=== PATIENT | female | born 1955 | race Caucasian/White ===

== ENCOUNTER 2025-05-25 08:03 | Outpatient (AMB) | payer MEDICARE, SELFPAY ==
--- NOTE | 2025-05-25 08:03 | MHC.OFFVIS ---
Vital Signs 05/25/25 08:08 Height 5 ft 1 in Weight 119 lb BMI 22.5 BP 132/78 Blood Pressure Location Rt brachial Position Sitting Pulse 56 Pulse Source Pulse Oximeter Pulse Oximetry (%) 99 Oxygen Delivery Method Room Air Intake Visit Reasons: migraine Allergies No Known Allergies Allergy (Verified 05/25/25 08:10) HPI Comments Details: Shonda is a 69-year-old female patient with a past medical history of vertigo, chronic migraine, fibromyalgia, cervicalgia, and dystonia who was previously seeing me at [facility] for management of her chronic migraines. She was receiving Botox every 3 months as well as occipital nerve blocks during the months that she was not receiving Botox therapy. She last had her Botox therapy on 04/21/2025. She presents to the clinic today here at [facility], to reestablish care with me at the [facility]. She tells me today that headaches have been occurring on a near daily basis. Have been steadily increasing over the course of the last several months. She feels that this is due to some new arising medical complications. Headaches are occurring near daily and can last several hours at high severity. She has been resting and taking Tylenol as needed a few times per week when headaches become more severe. Headaches can be occipital and bitemporal and felt as a pressure sensation. She does have light and sound sensitivity and some intermittent nausea when her headaches become severe. In general, Botox has been helpful historically. Headaches have reduced approximately 50% in severity since starting on Botox in general. She is currently seeing a provider in [place] for a cyst/lesion on her lung. She will be soon starting CellCept for this. They feel that at this time biopsy would be too risky. Past medication trials: Metoprolol- Currently taking for cardiovascular purposes but does not help with headaches Amitriptyline- No benefit Topiramate- No benefit Has tried several triptans in the past. She can recall trials of sumatriptan, rizatriptan, and naratriptan and these did not provide any benefit. Prior workup: Her recent workup has included an MRI of the brain with and without contrast performed 08/30/2024: Findings demonstrated no acute/subacute infarct, mass, hemorrhage, or other acute intracranial abnormality. There was some mild scattered T2 FLAIR hyperintense foci in the white matter, nonspecific but most likely reflecting chronic small-vessel disease. [facility] Medical History (Updated 05/25/25 @ 08:15 by Concha Lazcano CNP) Multinodular non-toxic goiter Migraine Surgical History (Updated 05/25/25 @ 08:11 by Najma Jimenez CMA) Hx of appendectomy H/O thyroidectomy H/O abdominal hysterectomy Family History (Updated 05/25/25 @ 08:13 by Najma Jimenez CMA) Mother Hypertension Father Leukemia Brother Colon cancer Social History Household Members: Spouse Housing: House Alcohol intake: never Patient Tobacco Use Status: Former Tobacco user service: No Current occupational status: retired Cognitive needs: No Hearing needs: No Vision needs: Yes Review of Systems Const All systems reviewed & are unremarkable except as noted in HPI and below GI Reports diarrhea and Reports nausea Physical Exam Vital Signs: Last Vital Signs Pulse 56 05/25/25 08:08 BP 132/78 05/25/25 08:08 Pulse Ox 99 05/25/25 08:08 Oxygen Delivery Method Room Air 05/25/25 08:08 BMI result Body Mass Index 22.5 Const General: cooperative, healthy appearing, comfortable and no acute distress Nutritional Appearance: well nourished Orientation/consciousness: patient oriented x3 Limitations: no limitations HEENT Other: Bilateral occipital notch tenderness Head: Yes normal to inspection and Yes normocephalic Eyes General: appearance normal, both eyes and all related structures Visual Antony: normal visual antony by confrontation Alignment and Position: alignment normal Periorbital: periorbital findings normal Eyelids: Yes eyelids normal Conjunctivae: conjunctivae normal Sclerae: sclerae normal Back/Spine/Pelvis Other: Bilateral L>R trapezius trigger points Neuro General: patient oriented x3 Cranial nerves: Yes CN's II-XII intact bilaterally and Yes Facial sensation intact/muscles of mastication intact Cognition (Neuro): normal cognition Gait exam (Neuro): Normal gait present Motor exam (neuro): no tremor noted Romberg Test: Negative Psych Appearance: grossly normal Mental Status: mental status grossly normal Speech and movement: Normal speech and movement present and Clear speech present Affect: normal affect Attitude: cooperative Thought process: Normal thought process present Thought content: Normal thought content present Insight: Good insight present (Psych) Judgement: Good judgement present (Psych) Office Procedures Nerve Block Details: Bilateral Greater Occipital Nerve block procedure: Laterally: Bilateral Indications: Occipital neuralgia Current allergies and current list of medications were reviewed prior to procedure, verbal consent was obtained, procedure was explained in detail to the patient prior to starting. Time-out was performed prior to procedure. Following universal hygiene protocols, patient's left occipital area was located by drawing a line between the external occipital protuberance and the mastoid process. The greater occipital nerve was located approximately 2/3 along this online communications manager to the occiput, and corresponded with the point of maximum tenderness. Alcohol was applied topically to the skin. A 27 gauge needle (aspirating during insertion) was inserted at a 45 degree angle until just above the periosteum. The providers selected agent (s)/medications (as documented in this note) were injected on the left side (directing needle to center, left and right of painful focus any fanning technique). Pressure with gauze pad was held briefly upon the site of puncture to minimize bleeding and to further spread anesthetic subcutaneously. The procedure was repeated on the right side. The patient was monitored for 15 minutes after the procedure and no complications were observed. Post procedure care was reviewed with the patient including application of ice intermittently to the injection sites over the course of the day to reduce inflammation. CPT: 46465-Bpggztv Occipital Procedure code (CPT) selection complete Therapeutic Injection Therapeutic Injection Details: Trigger point injection procedure: Laterally:Bilateral Indications: Chronic headaches, myofascial pain Following universal hygiene protocol, after explaining the risks and benefits as well as hazards of the procedure to the patient, consent was signed and placed in the chart. Time-out prior to starting the procedure was performed. The areas over the bilateral trapezius were cleansed with alcohol. 2 Sites in each trapezius muscle injected with a 27 gauge 1.5 in needle with myofascial spasm. Patient tolerated the procedure well, localized bleeding was controlled. Patient monitored in the clinic for 15 minutes for complications. Patient was discharged home with instructions to apply ice to the back of their head as needed. 80436-[id number] Point Injection 1 or 2 sites All charges added?: Procedure code (CPT) selection complete Office Meds lidocaine (PF) 10 mg/mL (1 %) injection solution Performing Provider: Concha Lazcano CNP Performing Location: [facility] Administered by: Concha Lazcano CNP on 05/25/25 08:45 Dose Route Admin Location Dispensed Lot Number Expiration Date [facility] Director Of Land [employer]quisition 2 mL peripheral nerve block 2 mL [id number] 06/06/27 88186-726-26 [employer] Total Dispensed Waste 2 mL 0 % bupivacaine (PF) 0.25 % (2.5 mg/mL) injection solution Performing Provider: Concha Lazcano CNP Performing Location: [facility] Administered by: Concha Lazcano CNP on 05/25/25 08:45 Dose Route Admin Location Dispensed Lot Number Expiration Date [facility] Director Of [employer] 4 mL Infiltration 10 mL [id number] [employer] Total Dispensed Waste 10 mL 60 % bupivacaine (PF) 0.25 % (2.5 mg/mL) injection solution Performing Provider: Concha Lazcano CNP Performing Location: [facility] Administered by: Concha Lazcano CNP on 05/25/25 08:45 Dose Route Admin Location Dispensed Lot Number Expiration Date [facility] Director Of [employer] 3 mL Infiltration 10 mL [id number] [employer] Total Dispensed Waste 10 mL 70 % Assessment & Plan Assessment & Plan (1) Chronic migraine without aura without status migrainosus, not intractable: Code(s): G43.709 - Chronic migraine without aura, not intractable, without status migrainosus Category: Medical (2) Trigger point of left shoulder region: Code(s): M25.512 - Pain in left shoulder Category: Medical (3) Occipital neuralgia: Code(s): M54.81 - Occipital neuralgia Category: Medical Plan Shonda is a 69-year-old female patient with a past medical history of vertigo, chronic migraine, fibromyalgia, cervicalgia, and dystonia who was previously seeing me at [facility] for management of her chronic migraines. Headaches have been so far best managed on Botox therapy in conjunction with nerve block and trigger point injections. She however still having some difficulty with frequent headaches and she feels that this may be related to some ongoing medical conditions. This has been causing her some stress. We will continue this regimen as in the past stopping this regimen has caused an increase in headaches. She also did have a near 50% reduction in the severity of her headaches with Botox therapy. I do however think that we should consider adding on an anti CGRP injectable in the future however provided that she is going to be going on some new medications for health concerns by other specialists, we will hold on this for now. I will however send for a trial of Ubrelvy 100 mg as needed for migraine abortive therapy. -Continue Botox therapy every 3 months -Continue occipital nerve blocks and trigger point injections on the months that she is not receiving Botox therapy -Trial of Ubrelvy 100mg as needed Orders: Orders AMB Nerve Block Today G43.709 - Chronic migraine without aura, not intractable, without status migrainosus, M54.81 - Occipital neuralgia AMB Trigger Point Injection Today M25.512 - Pain in left shoulder Coding Level of Care Code New Pt Level 4 (88150) Diagnoses Chronic migraine without aura without status migrainosus, not intractable G43.709 Trigger point of left shoulder region M25.512 Occipital neuralgia M54.81 CPT Codes Nerve Block - CPT: 74964-Acqyvhv Occipital ([id number]) Therapeutic Injection - Ther Injection 1: [id number]-[id number] Point Injection 1 or 2 sites ([id number])
[2025-05-25 08:08] VITALS: BP 132/78; PULSE 56; O2SAT 99; BMI 22.5
--- OUTSIDE RECORDS SUMMARY | 2025-05-25 08:10 | XMS_ITS | Clinical Summary ---
Author Organization [address] [place] [address] [place] [phone] Phone Care Team Providers Care Schedule Checker Name Role Phone Tiffany Batista MD Primary Care Provider [phone] Allergies No known active allergies Medications albuterol HFA (PROAIR HFA ; PROVENTIL HFA ; VENTOLIN HFA) 90 mcg/actuation inhaler Inhale 2 Puffs into the lungs every 6 hours as needed for Cough or Wheezing for up to 30 days. 08/25/2022 Active atorvastatin (LIPITOR) 80 mg tablet Take 1 tablet (80 mg total) by mouth 1 (one) time each day. Active CALCIUM CITRATE ORAL Take by mouth. Active CYANOCOBALAMIN, VITAMIN B-12, ORAL Take 1 tablet by mouth daily. Active coenzyme Q-10 100 mg capsule Take 1 capsule (100 mg total) by mouth 2 (two) times a day. Active estradioL (ESTRACE) 1 mg tablet See Admin Instructions. Take 1 Tablet by oral route 2 times every week Active flecainide (TAMBOCOR) 100 mg tablet Take 1 tablet (100 mg total) by mouth 2 (two) times a day. 03/08/2024 Active levothyroxine (SYNTHROID, LEVOTHROID) 100 mcg tablet Take 100 mcg by mouth daily. 06/25/2021 Active MAGNESIUM ORAL Take 1 tablet by mouth daily. Active metoprolol succinate (TOPROL-XL) 25 mg 24 hr tablet Take 0.5 Tablets by mouth daily. Active naltrexone (Lotrexone) 1.5 mg capsule Take by mouth See Admin Instructions. Take 1.5 mg for 2 weeks, 3 mg for 2 weeks, then 4.5 mg daily. Active omeprazole (PriLOSEC) [address] capsule Take 1 Cap by mouth daily. Active pyRIDostigmine (MESTINON) 60 mg tablet Take 1 tablet (60 mg total) by mouth 3 (three) times a day. Active topiramate (TOPAMAX) 50 mg tablet Take 1 Tab by mouth 2 times daily. Active traZODone (DESYREL) 50 mg tablet Take 1 Tab by mouth at bedtime as needed. Active CHOLECALCIFEROL , VITAMIN D3, ORAL Take by mouth daily. 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 We did discuss that this is likely due to her frequent PVCs. When I checked her blood pressure initially her systolic was 80. She was having frequent PVCs at the time. I rechecked it and it was 140. She will continue on her current medications for her blood pressure at this time. Palpitations 10/16/2020 PVC (premature ventricular contraction) 10/16/19 Overview (06/06/2024): Last Assessment & Plan: We did discuss her symptoms of fatigue and shortness of breath. We did discuss that this is likely related to her frequent PVCs. She is having more than 26% of these in a day. Unfortunately they did not improve with her beta-trell or calcium channel trell. Based on her symptomatology from these I think we should try her on an antiarrhythmic. She did have an echo and a stress test done which were normal. Ideally I would try her on flecainide 50 mg twice a day. However, she did have some intermittent second-degree heart block noted at night on her Holter monitor. This is likely still safe to try her on a 1C antiarrhythmic however I will discuss this with our EP colleagues to see with her level of concern is. We may end up sending her for an EP consult for this. I will let her know what the plan is. If things worsen she will let us know. Encounters Date Type Department Care Team Description 05/23/2025 Telephone [facility] [address] [facility] [address] [place] [address] Dayne Barreto MD from Last 3 Months Surgical History Surgery Date Site/Laterality Comments APPENDECTOMY COLONOSCOPY HYSTERECTOMY THYROIDECTOMY ESOPHAGOGASTRODUODENOSCOPY Medical History Medical History Date Comments Fibromyalgia GERD (gastroesophageal reflux disease) Hepatitis C Hypothyroidism Irritable bowel syndrome Ovarian cancer ([facility] V24, [facility] V28) Social History Tobacco Use Types Packs/Day Years Used Date Smoking Tobacco: Former Cigarettes Smokeless Tobacco: Never Tobacco Cessation:Counseling Given: Not Answered Alcohol Use Standard Drinks/Week Comments Not Currently 0 (1 standard drink = 0.6 oz pur e alcohol) Comments Unknown Sex and Gender Information Value Date Recorded Sex Assigned at Not on file Legal Sex Female 5:27 PM EST Gender Identity Not on file Sexual Orientation Not on file Obstetrics History Last Filed Vital Signs Vital Sign Reading Time Taken Comments Blood Pressure 130/60 07/13/2024 1:22 PM EST Pulse 70 07/13/2024 1:22 PM EST Temperature - - Respiratory Rate - - Oxygen Saturation 99% 07/13/2024 1:22 PM EST Inhaled Oxygen Concentration - - Weight 55.3 kg (122 lb) 07/13/2024 1:22 PM EST Height 154.9 cm (5' 1 ) 01/11/2024 10:48 AM EDT Body Mass Index 23.05 01/11/2024 10:48 AM EDT Plan of Treatment Upcoming Encounters Date Type Department Care Team (Late st Contact Info) Description 05/30/2025 3:15 PM EDT Office Visit [facility] [address] [facility] [address] [place] [phone] Dayne Barreto MD [address] [place] [address] [place] [address] Health Maintenance Due Date Last Done Comments Breast Cancer Screening 1955 DTaP,Tdap,and Td Vaccines (1 - Tdap) 1976 Zoster Vaccines (1 of 2) 1976 Pneumococcal Vaccine: 50+ Years (1 of 1 - PCV) 11/06/2007 COVID-19 Vaccine (3 - Pfizer risk series) 02/02/2021 01/05/2021, 12/15/2020 Cholesterol Screening (Lipid Panel) 08/16/2022 Colorectal Cancer Screening: Colonoscopy 08/16/2022 Hepatitis C Screening 08/16/2022 Medicare Annual Wellness Visit 08/16/2022 Osteoporosis Screening (Bone Density Screening) 08/16/2022 Social Influencers of Health Screening 08/16/2022 Hypertension/CHF/CAD Annual BMP Blood Test 08/17/2022 Falls Risk Assessment 2022 Depression Screening 09/07/2024 Influenza Vaccine (#1) 2025 RSV Immunization Adult Patients (1 - 1-dose 75+ series) 2032 HIB Vaccines Aged Out No longer eligi ble based on patient's age to complete this topic HPV Vaccines Aged Out No longer eligi ble based on patient's age to complete this topic Hepatitis A Vaccines Aged Out No long er eligible based on patient's age to complete this topic Hepatitis B Vaccines Aged Out No long er eligible based on patient's age to complete this topic IPV Vaccines Aged Out No longer eligi ble based on patient's age to complete this topic MMR Vaccines Aged Out No longer eligi ble based on patient's age to complete this topic Meningococcal ACWY Vaccine Aged Out N o longer eligible based on patient's age to complete this topic Meningococcal B Vaccine Aged Out No l onger eligible based on patient's age to complete this topic RSV Immunization Patients Under 20 months Aged Out No longer eligible b ased on patient's age to complete this topic Varicella Vaccines Aged Out No longer eligible based on patient's age to complete this topic Insurance MEDICARE AARP Care Teams Schedule Checker Relationship Specialty Start Date End Date Tiffany Batista MD [address] [place] [address] PCP - General 07/16/22
--- OUTSIDE RECORDS SUMMARY | 2025-05-25 08:10 | XMS_ITS | Patient Health Record ---
Author Organization [facility] [address] Address [address] [place] [address] Care Team Providers Care Choke Setter Name Role Phone ESCOBAR BATISTA Unavailable [phone] Bebe Urrutia Unavailable [phone] Allergies No Known Allergies Results Component Value Reference Range Notes Comp. Metabolic Panel ([id number] Reviewed date:12/29/2024 04:47:52 PM Interpretation: Performing Lab:[facility], [employer] [facility], Phone - [phone], Director - MDJodry Notes/Report: Glucose 77 70-99 mg/dL BUN 10 8-27 mg/dL Creatinine 0.80 0.57-1.00 mg/dL eGFR 81 >59 mL/min/1.73 BUN/Creatinine Ratio 13 12-28 Sodium 140 134-144 mmol/L Potassium 3.8 3.5-5.2 mmol/L Chloride 102 96-106 mmol/L Carbon Dioxide, Total 25 20-29 mmol/L Calcium 8.8 8.7-10.3 mg/dL Protein, Total 6.3 6.0-8.5 g/dL Albumin 4.2 3.9-4.9 g/dL Globulin, Total 2.1 1.5-4.5 g/dL Bilirubin, Total 0.6 0.0-1.2 mg/dL Alkaline Phosphatase 47 44-121 IU/L AST (SGOT) 17 0-40 IU/L ALT (SGPT) 7 0-32 IU/L Lipid Panel-[id number] Reviewed date:04/11/2025 09:41:02 AM Interpretation: Performing Lab:[facility], [address] , [place], Phone - [phone], Director - MDJodry Notes/Report: Cholesterol, Total 216 100-199 mg/dL Triglycerides 108 0-149 mg/dL HDL Cholesterol 63 >39 mg/dL VLDL Cholesterol Stanley 19 5-40 mg/dL LDL Chol Calc ([facility]) 134 0-99 mg/dL Lipid Panel-[id number] Reviewed date:12/29/2024 04:48:36 PM Interpretation: Performing [facility], [address] [place] [address], Phone - [phone], Director - PAPhilly Notes/Report: Cholesterol, Total 237 100-199 mg/dL Triglycerides 114 0-149 mg/dL HDL Cholesterol 76 >39 mg/dL VLDL Cholesterol Stanley 20 5-40 mg/dL LDL Chol Calc ([facility]) 141 0-99 mg/dL Celiac Ab tTG TIgA w/Rflx-16 [id number] Reviewed date:12/29/2024 04:47:37 PM Interpretation: Performing Lab:[facility] [place], [address] [place] [address], Phone - [phone], Director - [facility] Notes/Report: t-Transglutaminase (tTG) IgA <2 0-3 U/mL Negative 0 - 3 Weak Positive 4 - 10 Positive >10 . Tissue Transglutaminase (tTG) has been identified as the endomysial antigen. Studies have demonstr- ated that endomysial IgA antibodies have over 99% specificity for gluten sensitive enteropathy. Immunoglobulin A, Qn, Serum 155 87-352 mg/dL Vitamin D, 00-[id number] Reviewed date:12/29/2024 04:48:54 PM Interpretation: Performing [facility], [address] [place] [address], Phone - [phone], Director - PANilo Notes/Report: Vitamin D, 25-Hydroxy 20.3 30.0-100.0 ng/mL Vitamin D deficiency has been defined by the [place] [employer] and an Endocrine Society practice guideline as a level of serum 25-OH vitamin D less than 20 ng/mL (1,2). The Endocrine Society went on to further define vitamin D insufficiency as a level between 21 and 29 ng/mL (2). 1. IOM ([place] [employer]). 2010. Dietary reference intakes for calcium and D. [place]: The National Academies Press. 2. Manuel MF, Tarsha NC, Jahaira BELTRAN, et al. Evaluation, treatment, and prevention of vitamin D deficiency: an Endocrine Society clinical practice guideline. JCEM. 2010; 96(6):1911-30. CBC With Differential/Platel et-[id number] Reviewed date:12/29/2024 04:48:12 PM Interpretation: Performing Lab:[facility] [place], [address] [place] [address], Phone - [phone], Director - Gabriella Notes/Report: WBC 3.9 3.4-10.8 x10E3/uL RBC 4.09 3.77-5.28 x10E6/uL Hemoglobin 12.7 11.1-15.9 g/dL Hematocrit 38.9 34.0-46.6 % MCV 95 79-97 fL MCH 31.1 26.6-33.0 pg MCHC 32.6 31.5-35.7 g/dL RDW 12.7 11.7-15.4 % Platelets 218 150-450 x10E3/uL Neutrophils 43 Not Estab. % Lymphs 45 Not Estab. % Monocytes 8 Not Estab. % Eos 3 Not Estab. % Basos 1 Not Estab. % Neutrophils (Absolute) 1.7 1.4-7.0 x10E3/uL Lymphs (Absolute) 1.7 0.7-3.1 x10E3/uL Monocytes(Absolute) 0.3 0.1-0.9 x10E3/uL Eos (Absolute) 0.1 0.0-0.4 x10E3/uL Baso (Absolute) 0.0 0.0-0.2 x10E3/uL Immature Granulocytes 0 Not Estab. % Immature Grans (Abs) 0.0 0.0-0.1 x10E3/uL [id number] Reviewed date:12/29/2024 04:47:11 PM Interpretation: Performing Lab:[facility] [place], [address] [facility], Phone - [phone], Director - Gabriella Notes/Report: TSH 2.980 0.450-4.500 uIU/mL Magnesium-[id number] Reviewed date:12/29/2024 04:46:34 PM Interpretation: Performing Lab:[facility] [place], [address] , [place], Phone - [phone], Director - Gabriella Notes/Report: Magnesium 2.0 1.6-2.3 mg/dL Vitamin [id number] Reviewed date:12/29/2024 04:46:44 PM Interpretation: Performing Lab:[facility], [address] , [place], Phone - [phone], Director - Gabriella Notes/Report: Vitamin B12 707 257-3565 pg/mL Vitamin D, 41-[id number] Reviewed date:04/11/2025 09:40:42 AM Interpretation: Performing Lab:[facility], [address] , [place], Phone - [phone], Director - Gabriella Notes/Report: Vitamin D, 25-Hydroxy 28.2 30.0-100.0 ng/mL Vitamin D deficiency has been defined by the [place] [employer] and an Endocrine Society practice guideline as a level of serum 25-OH vitamin D less than 20 ng/mL (1,2). The Endocrine Society went on to further define vitamin D insufficiency as a level between 21 and 29 ng/mL (2). 1. IOM ([place] [employer]). 2010. Dietary reference intakes for calcium and D. [place]: The National Academies Press. 2. Manuel MF, Tarsha JAIN, Jahaira BELTRAN, et al. Evaluation, treatment, and prevention of vitamin D deficiency: an Endocrine Society clinical practice guideline. JCEM. 2010; 96(7):1911-30. Reason For Referral Reason [facility]; change in bowel habit/abdominal pain Diagnosis 1 Bowel habit changes (R19.4) Diagnosis 2 Abdominal pain of un known etiology (R10.9) Referral Organization [facility] [address] Referring Provider First Name Bebe Referring Provider [facility] Referring Provider Speciality Internal M edicine Referred Provider Specialty Gastroentero logy General Notes (f) [phone] Clinical Notes Dea Bains 11:24:40 AM > referral faxed with attachments Referral Priority Routine Medications Medication SIG (Take, Route, Frequency, Duration) Notes Start Date End Date Status dilTIAZem HCl ER 120 MG 1 capsule Orally Twice a day Active Citracal + D Active Mestinon 60 MG 0.5 tablet Orally every 8 hours Active Ezetimibe 10 MG TAKE 1 TABLET BY MOUTH EVERY DAY; Duration: 90 Active Metoprolol Succinate ER 25 MG 1 tablet Orally Once a day 1/2 tablet (12.5mg) Active Nataliia 0.1 MG/24HR APPLY 1 PATCH TOPICALLY TWO TIMES A WEEK. REMOVE OLD PATCH BEFORE APPLYING NEW ONE.; Duration: 28 days Active B12 Active B Complex Active Atorvastatin Calcium 80 MG TAKE 1 TABLET BY MOUTH EVERY DAY; Duration: 90 Active Omeprazole 40 MG TAKE 1 CAPSULE BY MOUTH EVERY DAY; Duration: 90 Active Ergocalciferol 50 MCG (2000 UT) 2 capsule Orally once a day; Duration: 30 days Active Naltrexone - as directed Activ e Levothyroxine Sodium 100 MCG TAKE 1 TABLET BY MOUTH EVERY DAY; Duration: 90 Active Flecainide Acetate 100 MG as directed Orally Active Immunizations Vaccine Route Administration Date Status Comme nts influenza IM Intramuscular 09/10/2022 Administered influenza IM Intramuscular 06/10/2023 Administered Prevnar 20 IM Intramuscular 09/29/2023 Administered Social History Tobacco Use: Social History Observation Description Date Details (start date - stop date) Former Smoker NA - NA Tobacco Use/Smoking Question Answer Notes Are you a former smoker Section Notes: Retired 2 children Retired 2 children Retired 2 children Retired 2 children Retired 2 children Retired 2 children Retired 2 children Retired 2 children Retired 2 children Retired 2 children Retired 2 children Retired 2 children Retired 2 children Retired 2 children Problems Problem Type SNOMED Code ICD Code Onset Dates Problem Status W/U Status Risk Notes Problem Respiratory disorders in diseases classified elsewhere (J99) Active confirmed Problem Adult health examination (467311417) Encounter for general adult medical examination without abnormal findings (Z00.00) Active confirmed Problem Hypothyroidism (71888554) Hypothyroidism, unspecified type (E03.9) Active confirmed Problem Vitamin D deficiency (96151451) Vitamin D deficiency (E55.9) Active confirmed Problem Gastroesophageal reflux disease without esophagitis (781506507) Gastroesophageal reflux disease without esophagitis (K21.9) Active confirmed Problem Diabetes mellitus screening (968665191) Screening for diabetes mellitus (Z13.1) Active confirmed Problem Vaginal bleeding (239833957) Vaginal bleeding (N93.9) Active confirmed Problem Abdominal pain (54869671) Abdominal pain of unknown etiology (R10.9) Active confirmed Problem Vitamin B>12< deficiency anaemia (93475507) Anemia due to vitamin B12 deficiency, unspecified B12 deficiency type (D51.9) Active confirmed Problem Migraine aura withou t headache (126795776) Migraine aura without headache (G43.109) Active confirmed Problem Mixed hyperlipidemia (981417329) Hyperlipidemia, mixed (E78.2) Active confirmed Problem Refractory migraine (391999745) Intractable migraine with status migrainosus, unspecified migraine type (G43.911) Active confirmed Problem Altered bowel habits (93722018) Bowel habit changes (R19.4) Active confirmed Problem Dysautonomia (06601395) Dysautonomia (G90.1) Active confirmed Problem Obstructive sleep apnea syndrome (67396670) AYSE on CPAP (G47.33) Active confirmed Problem Cystic-bullous disea se of the lung (0746253) 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) Active confirmed Problem Menopausal symptom (04840117) Menopausal symptoms (N95.1) Active confirmed Problem Hypothyroid (61786545) Hypothyroid (E03.9) Activ e confirmed Problem Elevated fasting lip id profile (791878838247) Elevated lipids (E78.5) Active confirmed Problem Endocrine/metabolic screening (706153424) Screening for endocrine disorder (Z13.29) Active confirmed Problem Age-related cataract (28929912) Age-related cataract of both eyes, unspecified age-related cataract type (H25.9) Active confirmed Problem Constipation (85956972) Constipation, unspecified constipation type (K59.00) Active confirmed Problem Diabetes mellitus screening (819590860) Diabetes mellitus screening (Z13.1) Active confirmed Problem Adult health examination (880964099) Adult general medical exam (Z00.00) Active confirmed Problem 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 Problem Vitamin D deficiency (52180320) Vitamin D deficiency, unspecified (E55.9) Active confirmed Problem Iron deficiency anem ia (94548502) Iron deficiency anemia, unspecified (D50.9) Active confirmed Vital Signs Heart Rate 53 /min 04/05/2025 Oximetry 99 % 04/05/2025 Blood pressure diastolic 68 mm Hg 04/05/2025 Height 61 in 04/05/2025 Blood pressure systolic 118 mm Hg 04/05/2025 Weight 118.2 lbs 04/05/2025 BMI 22.33 kg/m2 04/05/2025 Encounters Encounter Location Date Provider Diagnosis [facility] [address] [address] 10/06/2024 Bebe Tonycek Acute bronchitis, unspecified organism J20.9 ; Dysautonomia G90.1 ; Cystic-bullous disease of lung J98.4 ; Change in bowel habits R19.4 and Acute cough R05.1 [facility] [address] 12/01/2024 Bebe Svrcek Dysautonomia G90.1 ; Hypothyroidism, unspecified type E03.9 ; Cystic-bullous disease of lung J98.4 and Change in bowel habits R19.4 [facility] [address] 01/04/2025 Bebe Svrcek Dysautonomia G90.1 ; Hypothyroidism, unspecified type E03.9 ; Cystic-bullous disease of lung J98.4 ; Change in bowel habits R19.4 ; Vitamin D deficiency E55.9 and Menopausal symptoms N95.1 [facility] [address] 04/05/2025 Bebe Svrcek Dysautonomia G90.1 ; Cystic-bullous disease of lung J98.4 ; Change in bowel habits R19.4 ; Vitamin D deficiency E55.9 and Encounter for examination of blood pressure without abnormal findings Z01.30 [facility] [address] 10/06/2024 ESCOBAR BATISTA [facility] [address] 01/04/2025 ESCOBAR BATISTA Elevated lipids E78. 5 and Vitamin D deficiency E55.9 [facility] [address] 04/05/2025 Bebe Svrcek Assessments Encounter Date Diagnosis (ICD Code) Assessment Notes Treatment Notes Treatment Clinical Notes Section Notes 10/06/2024 Acute bronchitis, unspecified organism (ICD-10 - J20.9) #Acute bronchitis. Coarse breath sounds on exam with persistent and worsening symptoms. Given complex medical history will treat with antibiotics. Start doxycycline. Reviewed risk benefits adverse effects of medication and proper use. Unable to use azithromycin due to interaction with flecainide. RSV COVID and flu swab done in the office and negative. Push fluids and rest follow-up if no improvement in 1 week sooner with any new or worsening symptoms. #Dysautonomia. She did have a biopsy done in [place] this past week and is awaiting results which will reportedly take 4 weeks. She will follow-up with me in 2 months sooner with any concerns. #Cystic bullous disease of the lung. Complicates medical care will be more aggressive with treatment. Discussed signs and symptoms to monitor for. #Abdominal pain and change in bowel movements. Did see GI in May. She continues with frequent bowel movements diarrhea and abdominal pain. She did have stool studies done by GI. She is interested in second opinion. Will refer today. Case discussed with collaborating physician Angela Batista who reviewed the assessment and plan. Chart, medications, labs, vital signs reviewed. Dictation was accomplished with the use of [employer] voice recognition software, prone to medical misidentifications and grammatical errors. This is unintentional and the practitioner does try to identify and correct these, but some could still be present. Please do not hesitate to contact practitioner for clarification. All questions answered to patients satisfaction. Patient verbalized understanding of diagnosis and treatments explained. To call sooner prior to next visit it any questions/concerns arise. 10/06/2024 Dysautonomia (ICD-10 - G90.1) #Acute bronchitis. Coarse breath sounds on exam with persistent and worsening symptoms. Given complex medical history will treat with antibiotics. Start doxycycline. Reviewed risk benefits adverse effects of medication and proper use. Unable to use azithromycin due to interaction with flecainide. RSV COVID and flu swab done in the office and negative. Push fluids and rest follow-up if no improvement in 1 week sooner with any new or worsening symptoms. #Dysautonomia. She did have a biopsy done in [place] this past week and is awaiting results which will reportedly take 4 weeks. She will follow-up with me in 2 months sooner with any concerns. #Cystic bullous disease of the lung. Complicates medical care will be more aggressive with treatment. Discussed signs and symptoms to monitor for. #Abdominal pain and change in bowel movements. Did see GI in May. She continues with frequent bowel movements diarrhea and abdominal pain. She did have stool studies done by GI. She is interested in second opinion. Will refer today. Case discussed with collaborating physician Angela Batista who reviewed the assessment and plan. Chart, medications, labs, vital signs reviewed. Dictation was accomplished with the use of [employer] voice recognition software, prone to medical misidentifications and grammatical errors. This is unintentional and the practitioner does try to identify and correct these, but some could still be present. Please do not hesitate to contact practitioner for clarification. All questions answered to patients satisfaction. Patient verbalized understanding of diagnosis and treatments explained. To call sooner prior to next visit it any questions/concerns arise. 12/01/2024 Hypothyroidism, unspecified type (ICD-10 - E03.9) #Dysautonomia. Has upcoming follow-up in [place]. She did have a biopsy and is still awaiting results. #Hypothyroidism. Due for updated labs. She does have ongoing bowel issues and has had extensive workup without clear cause. Will get further records to review and get updated labs. Follow-up pending results. #Cystic bullous disease of lung. Followed by pulmonology in [place]. Has upcoming appointment in the next month. Breathing is stable. Lungs are clear on exam. #Change in bowel habits. Ongoing issue with very frequent bowel movements up to 15 times a day. Has had colonoscopy and seen GI without any improvement. Currently on Imodium and omeprazole as well as FODMAP diet with persistent symptoms. Interested in second opinion in [place]. Will request GI records as I am unable to find them in the system at time of visit. Follow-up in 1 month sooner with any concerns. Case discussed with collaborating physician Angela Batista who reviewed the assessment and plan. Chart, medications, labs, vital signs reviewed. Dictation was accomplished with the use of [employer] voice recognition software, prone to medical misidentifications and grammatical errors. This is unintentional and the practitioner does try to identify and correct these, but some could still be present. Please do not hesitate to contact practitioner for clarification. All questions answered to patients satisfaction. Patient verbalized understanding of diagnosis and treatments explained. To call sooner prior to next visit it any questions/concerns arise. 12/01/2024 Dysautonomia (ICD-10 - G90.1) #Dysautonomia. Has upcoming follow-up in [place]. She did have a biopsy and is still awaiting results. #Hypothyroidism. Due for updated labs. She does have ongoing bowel issues and has had extensive workup without clear cause. Will get further records to review and get updated labs. Follow-up pending results. #Cystic bullous disease of lung. Followed by pulmonology in [place]. Has upcoming appointment in the next month. Breathing is stable. Lungs are clear on exam. #Change in bowel habits. Ongoing issue with very frequent bowel movements up to 15 times a day. Has had colonoscopy and seen GI without any improvement. Currently on Imodium and omeprazole as well as FODMAP diet with persistent symptoms. Interested in second opinion in [place]. Will request GI records as I am unable to find them in the system at time of visit. Follow-up in 1 month sooner with any concerns. Case discussed with collaborating physician Angela Batista who reviewed the assessment and plan. Chart, medications, labs, vital signs reviewed. Dictation was accomplished with the use of [employer] voice recognition software, prone to medical misidentifications and grammatical errors. This is unintentional and the practitioner does try to identify and correct these, but some could still be present. Please do not hesitate to contact practitioner for clarification. All questions answered to patients satisfaction. Patient verbalized understanding of diagnosis and treatments explained. To call sooner prior to next visit it any questions/concerns arise. 01/04/2025 Hypothyroidism, unspecified type (ICD-10 - E03.9) #Dysautonomia. Has upcoming follow-up in [place]. She did have a biopsy and is still awaiting results. Appt January 16. #Hypothyroidism. TSH in range. Still struggling with significant bowel issues- frequent BMs 3-15 a day. #Cystic bullous disease of lung. Followed by pulmonology in [place]. Has upcoming appointment in the next month. Breathing is stable. Lungs are clear on exam. #Change in bowel habits. Ongoing issue with very frequent bowel movements up to 15 times a day. Has had colonoscopy and seen GI without any improvement. Currently on Imodium and omeprazole as well as FODMAP diet with persistent symptoms. Will be going to [place] to discuss further. ? related to dysautonomia. Updated labs reviewed. #VIt D deficiency. Vitamin D 20 on recent labs. She has been on 2000 IUs of D3 daily. Will increase to 4000 IUs daily. Plan to recheck again in 3 months. #Menopausal symptoms. Currently on patch. Refilled for her today. Case discussed with collaborating physician Angela Batista who reviewed the assessment and plan. Chart, medications, labs, vital signs reviewed. Dictation was accomplished with the use of [employer] voice recognition software, prone to medical misidentifications and grammatical errors. This is unintentional and the practitioner does try to identify and correct these, but some could still be present. Please do not hesitate to contact practitioner for clarification. All questions answered to patients satisfaction. Patient verbalized understanding of diagnosis and treatments explained. To call sooner prior to next visit it any questions/concerns arise. 01/04/2025 Dysautonomia (ICD-10 - G90.1) #Dysautonomia. Has upcoming follow-up in [place]. She did have a biopsy and is still awaiting results. Appt January 16. #Hypothyroidism. TSH in range. Still struggling with significant bowel issues- frequent BMs 3-15 a day. #Cystic bullous disease of lung. Followed by pulmonology in [place]. Has upcoming appointment in the next month. Breathing is stable. Lungs are clear on exam. #Change in bowel habits. Ongoing issue with very frequent bowel movements up to 15 times a day. Has had colonoscopy and seen GI without any improvement. Currently on Imodium and omeprazole as well as FODMAP diet with persistent symptoms. Will be going to [place] to discuss further. ? related to dysautonomia. Updated labs reviewed. #VIt D deficiency. Vitamin D 20 on recent labs. She has been on 2000 IUs of D3 daily. Will increase to 4000 IUs daily. Plan to recheck again in 3 months. #Menopausal symptoms. Currently on patch. Refilled for her today. Case discussed with collaborating physician Angela Batista who reviewed the assessment and plan. Chart, medications, labs, vital signs reviewed. Dictation was accomplished with the use of [employer] voice recognition software, prone to medical misidentifications and grammatical errors. This is unintentional and the practitioner does try to identify and correct these, but some could still be present. Please do not hesitate to contact practitioner for clarification. All questions answered to patients satisfaction. Patient verbalized understanding of diagnosis and treatments explained. To call sooner prior to next visit it any questions/concerns arise. 01/04/2025 Elevated lipids (ICD-10 - E78.5) 04/05/2025 Dysautonomia (ICD-10 - G90.1) #Dysautonomia. Has upcoming follow-up in [place]. There has been some discussion about considering pacemaker. She has intermittent low heart rate and fatigue and dizziness. #Cystic bullous disease of lung. Followed by pulmonology in [place]. Breathing is stable and lungs clear on exam. She does report she had recent pulmonary function test and updated CT done which showed an increase in size and number of cystic lesions in her lungs. She has a follow-up to discuss these results with her specialist in the next month or 2. Will request records from [facility] to review. #Change in bowel habits. Ongoing issue with very frequent bowel movements up to 15 times a day. Has had colonoscopy and seen GI without any improvement. Currently on Imodium and omeprazole as well as FODMAP diet with persistent symptoms. She is scheduled next month with GI in [place] to discuss further. Question related to dysautonomia. #VIt D deficiency. Vitamin D 28 on recent labs, up from 20. She has been on 4000 IUs of D3 daily, continue current regimen. Case discussed with collaborating physician Angela Batista who reviewed the assessment and plan. Chart, medications, labs, vital signs reviewed. Dictation was accomplished with the use of [employer] voice recognition software, prone to medical misidentifications and grammatical errors. This is unintentional and the practitioner does try to identify and correct these, but some could still be present. Please do not hesitate to contact practitioner for clarification. All questions answered to patients satisfaction. Patient verbalized understanding of diagnosis and treatments explained. To call sooner prior to next visit it any questions/concerns arise. 04/05/2025 Cystic-bullous disease of lung (ICD-10 - J98.4) #Dysautonomia. Has upcoming follow-up in [place]. There has been some discussion about considering pacemaker. She has intermittent low heart rate and fatigue and dizziness. #Cystic bullous disease of lung. Followed by pulmonology in [place]. Breathing is stable and lungs clear on exam. She does report she had recent pulmonary function test and updated CT done which showed an increase in size and number of cystic lesions in her lungs. She has a follow-up to discuss these results with her specialist in the next month or 2. Will request records from [facility] to review. #Change in bowel habits. Ongoing issue with very frequent bowel movements up to 15 times a day. Has had colonoscopy and seen GI without any improvement. Currently on Imodium and omeprazole as well as FODMAP diet with persistent symptoms. She is scheduled next month with GI in [place] to discuss further. Question related to dysautonomia. #VIt D deficiency. Vitamin D 28 on recent labs, up from 20. She has been on 4000 IUs of D3 daily, continue current regimen. Case discussed with collaborating physician Angela Batista who reviewed the assessment and plan. Chart, medications, labs, vital signs reviewed. Dictation was accomplished with the use of [employer] voice recognition software, prone to medical misidentifications and grammatical errors. This is unintentional and the practitioner does try to identify and correct these, but some could still be present. Please do not hesitate to contact practitioner for clarification. All questions answered to patients satisfaction. Patient verbalized understanding of diagnosis and treatments explained. To call sooner prior to next visit it any questions/concerns arise. 04/05/2025 Change in bowel habits (ICD-10 - R19.4) #Dysautonomia. Has upcoming follow-up in [place]. There has been some discussion about considering pacemaker. She has intermittent low heart rate and fatigue and dizziness. #Cystic bullous disease of lung. Followed by pulmonology in [place]. Breathing is stable and lungs clear on exam. She does report she had recent pulmonary function test and updated CT done which showed an increase in size and number of cystic lesions in her lungs. She has a follow-up to discuss these results with her specialist in the next month or 2. Will request records from [facility] to review. #Change in bowel habits. Ongoing issue with very frequent bowel movements up to 15 times a day. Has had colonoscopy and seen GI without any improvement. Currently on Imodium and omeprazole as well as FODMAP diet with persistent symptoms. She is scheduled next month with GI in [place] to discuss further. Question related to dysautonomia. #VIt D deficiency. Vitamin D 28 on recent labs, up from 20. She has been on 4000 IUs of D3 daily, continue current regimen. Case discussed with collaborating physician Angela Batista who reviewed the assessment and plan. Chart, medications, labs, vital signs reviewed. Dictation was accomplished with the use of Dragon voice recognition software, prone to medical misidentifications and grammatical errors. This is unintentional and the practitioner does try to identify and correct these, but some could still be present. Please do not hesitate to contact practitioner for clarification. All questions answered to patients satisfaction. Patient verbalized understanding of diagnosis and treatments explained. To call sooner prior to next visit it any questions/concerns arise. 01/04/2025 Cystic-bullous disease of lung (ICD-10 - J98.4) #Dysautonomia. Has upcoming follow-up in [place]. She did have a biopsy and is still awaiting results. Appt January 16. #Hypothyroidism. TSH in range. Still struggling with significant bowel issues- frequent BMs 3-15 a day. #Cystic bullous disease of lung. Followed by pulmonology in [place]. Has upcoming appointment in the next month. Breathing is stable. Lungs are clear on exam. #Change in bowel habits. Ongoing issue with very frequent bowel movements up to 15 times a day. Has had colonoscopy and seen GI without any improvement. Currently on Imodium and omeprazole as well as FODMAP diet with persistent symptoms. Will be going to [place] to discuss further. ? related to dysautonomia. Updated labs reviewed. #VIt D deficiency. Vitamin D 20 on recent labs. She has been on 2000 IUs of D3 daily. Will increase to 4000 IUs daily. Plan to recheck again in 3 months. #Menopausal symptoms. Currently on patch. Refilled for her today. Case discussed with collaborating physician Angela Batista who reviewed the assessment and plan. Chart, medications, labs, vital signs reviewed. Dictation was accomplished with the use of [employer] voice recognition software, prone to medical misidentifications and grammatical errors. This is unintentional and the practitioner does try to identify and correct these, but some could still be present. Please do not hesitate to contact practitioner for clarification. All questions answered to patients satisfaction. Patient verbalized understanding of diagnosis and treatments explained. To call sooner prior to next visit it any questions/concerns arise. 01/04/2025 Vitamin D deficiency (ICD-10 - E55.9) 10/06/2024 Cystic-bullous disease of lung (ICD-10 - J98.4) #Acute bronchitis. Coarse breath sounds on exam with persistent and worsening symptoms. Given complex medical history will treat with antibiotics. Start doxycycline. Reviewed risk benefits adverse effects of medication and proper use. Unable to use azithromycin due to interaction with flecainide. RSV COVID and flu swab done in the office and negative. Push fluids and rest follow-up if no improvement in 1 week sooner with any new or worsening symptoms. #Dysautonomia. She did have a biopsy done in [place] this past week and is awaiting results which will reportedly take 4 weeks. She will follow-up with me in 2 months sooner with any concerns. #Cystic bullous disease of the lung. Complicates medical care will be more aggressive with treatment. Discussed signs and symptoms to monitor for. #Abdominal pain and change in bowel movements. Did see GI in May. She continues with frequent bowel movements diarrhea and abdominal pain. She did have stool studies done by GI. She is interested in second opinion. Will refer today. Case discussed with collaborating physician Angela Batista who reviewed the assessment and plan. Chart, medications, labs, vital signs reviewed. Dictation was accomplished with the use of [employer] voice recognition software, prone to medical misidentifications and grammatical errors. This is unintentional and the practitioner does try to identify and correct these, but some could still be present. Please do not hesitate to contact practitioner for clarification. All questions answered to patients satisfaction. Patient verbalized understanding of diagnosis and treatments explained. To call sooner prior to next visit it any questions/concerns arise. 12/01/2024 Cystic-bullous disease of lung (ICD-10 - J98.4) #Dysautonomia. Has upcoming follow-up in [place]. She did have a biopsy and is still awaiting results. #Hypothyroidism. Due for updated labs. She does have ongoing bowel issues and has had extensive workup without clear cause. Will get further records to review and get updated labs. Follow-up pending results. #Cystic bullous disease of lung. Followed by pulmonology in [place]. Has upcoming appointment in the next month. Breathing is stable. Lungs are clear on exam. #Change in bowel habits. Ongoing issue with very frequent bowel movements up to 15 times a day. Has had colonoscopy and seen GI without any improvement. Currently on Imodium and omeprazole as well as FODMAP diet with persistent symptoms. Interested in second opinion in [place]. Will request GI records as I am unable to find them in the system at time of visit. Follow-up in 1 month sooner with any concerns. Case discussed with collaborating physician Angela Batista who reviewed the assessment and plan. Chart, medications, labs, vital signs reviewed. Dictation was accomplished with the use of [employer] voice recognition software, prone to medical misidentifications and grammatical errors. This is unintentional and the practitioner does try to identify and correct these, but some could still be present. Please do not hesitate to contact practitioner for clarification. All questions answered to patients satisfaction. Patient verbalized understanding of diagnosis and treatments explained. To call sooner prior to next visit it any questions/concerns arise. 12/01/2024 Change in bowel habits (ICD-10 - R19.4) #Dysautonomia. Has upcoming follow-up in [place]. She did have a biopsy and is still awaiting results. #Hypothyroidism. Due for updated labs. She does have ongoing bowel issues and has had extensive workup without clear cause. Will get further records to review and get updated labs. Follow-up pending results. #Cystic bullous disease of lung. Followed by pulmonology in [place]. Has upcoming appointment in the next month. Breathing is stable. Lungs are clear on exam. #Change in bowel habits. Ongoing issue with very frequent bowel movements up to 15 times a day. Has had colonoscopy and seen GI without any improvement. Currently on Imodium and omeprazole as well as FODMAP diet with persistent symptoms. Interested in second opinion in [place]. Will request GI records as I am unable to find them in the system at time of visit. Follow-up in 1 month sooner with any concerns. Case discussed with collaborating physician Angela Batista who reviewed the assessment and plan. Chart, medications, labs, vital signs reviewed. Dictation was accomplished with the use of [employer] voice recognition software, prone to medical misidentifications and grammatical errors. This is unintentional and the practitioner does try to identify and correct these, but some could still be present. Please do not hesitate to contact practitioner for clarification. All questions answered to patients satisfaction. Patient verbalized understanding of diagnosis and treatments explained. To call sooner prior to next visit it any questions/concerns arise. 10/06/2024 Change in bowel habits (ICD-10 - R19.4) #Acute bronchitis. Coarse breath sounds on exam with persistent and worsening symptoms. Given complex medical history will treat with antibiotics. Start doxycycline. Reviewed risk benefits adverse effects of medication and proper use. Unable to use azithromycin due to interaction with flecainide. RSV COVID and flu swab done in the office and negative. Push fluids and rest follow-up if no improvement in 1 week sooner with any new or worsening symptoms. #Dysautonomia. She did have a biopsy done in [place] this past week and is awaiting results which will reportedly take 4 weeks. She will follow-up with me in 2 months sooner with any concerns. #Cystic bullous disease of the lung. Complicates medical care will be more aggressive with treatment. Discussed signs and symptoms to monitor for. #Abdominal pain and change in bowel movements. Did see GI in May. She continues with frequent bowel movements diarrhea and abdominal pain. She did have stool studies done by GI. She is interested in second opinion. Will refer today. Case discussed with collaborating physician Angela Batista who reviewed the assessment and plan. Chart, medications, labs, vital signs reviewed. Dictation was accomplished with the use of [employer] voice recognition software, prone to medical misidentifications and grammatical errors. This is unintentional and the practitioner does try to identify and correct these, but some could still be present. Please do not hesitate to contact practitioner for clarification. All questions answered to patients satisfaction. Patient verbalized understanding of diagnosis and treatments explained. To call sooner prior to next visit it any questions/concerns arise. 01/04/2025 Change in bowel habits (ICD-10 - R19.4) #Dysautonomia. Has upcoming follow-up in [place]. She did have a biopsy and is still awaiting results. Appt January 16. #Hypothyroidism. TSH in range. Still struggling with significant bowel issues- frequent BMs 3-15 a day. #Cystic bullous disease of lung. Followed by pulmonology in [place]. Has upcoming appointment in the next month. Breathing is stable. Lungs are clear on exam. #Change in bowel habits. Ongoing issue with very frequent bowel movements up to 15 times a day. Has had colonoscopy and seen GI without any improvement. Currently on Imodium and omeprazole as well as FODMAP diet with persistent symptoms. Will be going to [place] to discuss further. ? related to dysautonomia. Updated labs reviewed. #VIt D deficiency. Vitamin D 20 on recent labs. She has been on 2000 IUs of D3 daily. Will increase to 4000 IUs daily. Plan to recheck again in 3 months. #Menopausal symptoms. Currently on patch. Refilled for her today. Case discussed with collaborating physician Angela Batista who reviewed the assessment and plan. Chart, medications, labs, vital signs reviewed. Dictation was accomplished with the use of [employer] voice recognition software, prone to medical misidentifications and grammatical errors. This is unintentional and the practitioner does try to identify and correct these, but some could still be present. Please do not hesitate to contact practitioner for clarification. All questions answered to patients satisfaction. Patient verbalized understanding of diagnosis and treatments explained. To call sooner prior to next visit it any questions/concerns arise. 04/05/2025 Vitamin D deficiency (ICD-10 - E55.9) #Dysautonomia. Has upcoming follow-up in [place]. There has been some discussion about considering pacemaker. She has intermittent low heart rate and fatigue and dizziness. #Cystic bullous disease of lung. Followed by pulmonology in [place]. Breathing is stable and lungs clear on exam. She does report she had recent pulmonary function test and updated CT done which showed an increase in size and number of cystic lesions in her lungs. She has a follow-up to discuss these results with her specialist in the next month or 2. [facility]. #Change in bowel habits. Ongoing issue with very frequent bowel movements up to 15 times a day. Has had colonoscopy and seen GI without any improvement. Currently on Imodium and omeprazole as well as FODMAP diet with persistent symptoms. She is scheduled next month with GI in [place] to discuss further. Question related to dysautonomia. #VIt D deficiency. Vitamin D 28 on recent labs, up from 20. She has been on 4000 IUs of D3 daily, continue current regimen. Case discussed with collaborating physician Angela Batista who reviewed the assessment and plan. Chart, medications, labs, vital signs reviewed. Dictation was accomplished with the use of [employer] voice recognition software, prone to medical misidentifications and grammatical errors. This is unintentional and the practitioner does try to identify and correct these, but some could still be present. Please do not hesitate to contact practitioner for clarification. All questions answered to patients satisfaction. Patient verbalized understanding of diagnosis and treatments explained. To call sooner prior to next visit it any questions/concerns arise. 04/05/2025 Encounter for examination of blood pressure without abnormal findings (ICD-10 - Z01.30) #Dysautonomia. Has upcoming follow-up in [place]. There has been some discussion about considering pacemaker. She has intermittent low heart rate and fatigue and dizziness. #Cystic bullous disease of lung. Followed by pulmonology in [place]. Breathing is stable and lungs clear on exam. She does report she had recent pulmonary function test and updated CT done which showed an increase in size and number of cystic lesions in her lungs. She has a follow-up to discuss these results with her specialist in the next month or 2. Will request records from [facility] to review. #Change in bowel habits. Ongoing issue with very frequent bowel movements up to 15 times a day. Has had colonoscopy and seen GI without any improvement. Currently on Imodium and omeprazole as well as FODMAP diet with persistent symptoms. She is scheduled next month with GI in [place] to discuss further. Question related to dysautonomia. #VIt D deficiency. Vitamin D 28 on recent labs, up from 20. She has been on 4000 IUs of D3 daily, continue current regimen. Case discussed with collaborating physician Angela Batista who reviewed the assessment and plan. Chart, medications, labs, vital signs reviewed. Dictation was accomplished with the use of [employer] voice recognition software, prone to medical misidentifications and grammatical errors. This is unintentional and the practitioner does try to identify and correct these, but some could still be present. Please do not hesitate to contact practitioner for clarification. All questions answered to patients satisfaction. Patient verbalized understanding of diagnosis and treatments explained. To call sooner prior to next visit it any questions/concerns arise. 01/04/2025 Vitamin D deficiency (ICD-10 - E55.9) #Dysautonomia. Has upcoming follow-up in [place]. She did have a biopsy and is still awaiting results. Appt January 16. #Hypothyroidism. TSH in range. Still struggling with significant bowel issues- frequent BMs 3-15 a day. #Cystic bullous disease of lung. Followed by pulmonology in [place]. Has upcoming appointment in the next month. Breathing is stable. Lungs are clear on exam. #Change in bowel habits. Ongoing issue with very frequent bowel movements up to 15 times a day. Has had colonoscopy and seen GI without any improvement. Currently on Imodium and omeprazole as well as FODMAP diet with persistent symptoms. Will be going to [place] to discuss further. ? related to dysautonomia. Updated labs reviewed. #VIt D deficiency. Vitamin D 20 on recent labs. She has been on 2000 IUs of D3 daily. Will increase to 4000 IUs daily. Plan to recheck again in 3 months. #Menopausal symptoms. Currently on patch. Refilled for her today. Case discussed with collaborating physician Angela Batista who reviewed the assessment and plan. Chart, medications, labs, vital signs reviewed. Dictation was accomplished with the use of [employer] voice recognition software, prone to medical misidentifications and grammatical errors. This is unintentional and the practitioner does try to identify and correct these, but some could still be present. Please do not hesitate to contact practitioner for clarification. All questions answered to patients satisfaction. Patient verbalized understanding of diagnosis and treatments explained. To call sooner prior to next visit it any questions/concerns arise. 10/06/2024 Acute cough (ICD-10 - R05.1) #Acute bronchitis. Coarse breath sounds on exam with persistent and worsening symptoms. Given complex medical history will treat with antibiotics. Start doxycycline. Reviewed risk benefits adverse effects of medication and proper use. Unable to use azithromycin due to interaction with flecainide. RSV COVID and flu swab done in the office and negative. Push fluids and rest follow-up if no improvement in 1 week sooner with any new or worsening symptoms. #Dysautonomia. She did have a biopsy done in [place] this past week and is awaiting results which will reportedly take 4 weeks. She will follow-up with me in 2 months sooner with any concerns. #Cystic bullous disease of the lung. Complicates medical care will be more aggressive with treatment. Discussed signs and symptoms to monitor for. #Abdominal pain and change in bowel movements. Did see GI in May. She continues with frequent bowel movements diarrhea and abdominal pain. She did have stool studies done by GI. She is interested in second opinion. Will refer today. Case discussed with collaborating physician Angela Batista who reviewed the assessment and plan. Chart, medications, labs, vital signs reviewed. Dictation was accomplished with the use of [employer] voice recognition software, prone to medical misidentifications and grammatical errors. This is unintentional and the practitioner does try to identify and correct these, but some could still be present. Please do not hesitate to contact practitioner for clarification. All questions answered to patients satisfaction. Patient verbalized understanding of diagnosis and treatments explained. To call sooner prior to next visit it any questions/concerns arise. 01/04/2025 Menopausal symptoms (ICD-10 - N95.1) #Dysautonomia. Has upcoming follow-up in [place]. She did have a biopsy and is still awaiting results. Appt January 16. #Hypothyroidism. TSH in range. Still struggling with significant bowel issues- frequent BMs 3-15 a day. #Cystic bullous disease of lung. Followed by pulmonology in [place]. Has upcoming appointment in the next month. Breathing is stable. Lungs are clear on exam. #Change in bowel habits. Ongoing issue with very frequent bowel movements up to 15 times a day. Has had colonoscopy and seen GI without any improvement. Currently on Imodium and omeprazole as well as FODMAP diet with persistent symptoms. Will be going to [place] to discuss further. ? related to dysautonomia. Updated labs reviewed. #VIt D deficiency. Vitamin D 20 on recent labs. She has been on 2000 IUs of D3 daily. Will increase to 4000 IUs daily. Plan to recheck again in 3 months. #Menopausal symptoms. Currently on patch. Refilled for her today. Case discussed with collaborating physician Angela Batista who reviewed the assessment and plan. Chart, medications, labs, vital signs reviewed. Dictation was accomplished with the use of [employer] voice recognition software, prone to medical misidentifications and grammatical errors. This is unintentional and the practitioner does try to identify and correct these, but some could still be present. Please do not hesitate to contact practitioner for clarification. All questions answered to patients satisfaction. Patient verbalized understanding of diagnosis and treatments explained. To call sooner prior to next visit it any questions/concerns arise. Plan Of Treatment Pending Test Test Name Order Date Vitamin B12 09/29/2023 CT ABDOMEN W CONTRAST 07/18/2022 ESR 05/04/2024 EKG 12/31/2022 25OH VITAMIN D 09/29/2023 25OH VITAMIN D 05/04/2024 ALKALINE PHOSPHATASE 07/18/2022 AMYLASE 07/18/2022 BILIRUBIN,TOTAL 07/18/2022 CBC (COMPLETE BLOOD COUNT) WITH DIFF 07/2022 CBC (COMPLETE BLOOD COUNT) WITH DIFF COMPREHENSIVE METABOLIC PANEL 09/29/2023 COMPREHENSIVE METABOLIC PANEL 07/18/2022 COMPREHENSIVE METABOLIC PANEL 05/04/2024 LIPASE 07/18/2022 LIPID PANEL 09/29/2023 TSH 09/29/2023 TSH 12/01/2024 URINALYSIS W/REFLEX CULTURE 05/04/2024 CBC with Differential 05/04/2024 CT Pelvis w Contrast 07/18/2022 VITAMIN B12 12/01/2024 MAGNESIUM 12/01/2024 LIPID PANEL, STANDARD 12/01/2024 LIPID PANEL, STANDARD 01/04/2025 LIPID PANEL, STANDARD 07/16/2022 LIPID PANEL, STANDARD 09/10/2022 LIPID PANEL, STANDARD 06/10/2023 IRON, TIBC AND FERRITIN PANEL 06/10/2023 COMPREHENSIVE METABOLIC PANEL 06/10/2023 COMPREHENSIVE METABOLIC PANEL 07/16/2022 COMPREHENSIVE METABOLIC PANEL 12/01/2024 IRON AND TOTAL IRON BINDING CAPACITY CBC (INCLUDES DIFF/PLT) 04/03/2023 CBC (INCLUDES DIFF/PLT) 06/10/2023 CBC (INCLUDES DIFF/PLT) 12/01/2024 CBC (INCLUDES DIFF/PLT) 07/16/2022 URINALYSIS, COMPLETE W/REFLEX TO CULTURE 10/14/2022 HEMOGLOBIN A1c 09/10/2022 INSULIN 06/10/2023 VITAMIN B12 04/03/2023 FERRITIN 04/03/2023 PROLACTIN 04/03/2023 PROLACTIN 06/10/2023 FOLATE, RBC 04/03/2023 T4, FREE 06/10/2023 T4, FREE 04/03/2023 T4, FREE 07/16/2022 T4 (THYROXINE), TOTAL 09/10/2022 TSH 09/10/2022 TSH 07/16/2022 TSH 04/03/2023 TSH 06/10/2023 T3, FREE 09/10/2022 VITAMIN D,25-OH,TOTAL,IA 09/10/2022 VITAMIN D,25-OH,TOTAL,IA 07/16/2022 VITAMIN D,25-OH,TOTAL,IA 12/01/2024 VITAMIN D,25-OH,TOTAL,IA 06/10/2023 VITAMIN D,25-OH,TOTAL,IA 01/04/2025 HELICOBACTER PYLORI, UREA BREATH TEST TESTOSTERONE, FREE (DIALYSIS) AND TOTAL, MS 04/03/2023 Celiac Ab tTG TIgA w/Rflx-[id number] Next Appt Details Provider Name:Bebe Urrutia, 1 09:00:00 AM, [address] [facility], [address], [place], [address], Insurance Providers Payer Name Payer Address Payer Phone Subscriber Number Group Number Insured Name Patient Relationship to Insured Coverage Start Date Coverage End Date Medicare Part B [address] [place] [address] [id number] Shonda Wyatt Self - patient is the insured 3 [facility] [address] [place], [place] [id number] Shonda Wyatt Self - patient is the insured 5 Medical (General) History Medical History History ICD Code PVC (premature ventricular contraction) I49.3 Essential (primary) hypertension I10 Hyperlipidemia, unspecified E78.5 Migraine with aura, not intractable, wit hout status migrainosus G43.109 Hypothyroidism, unspecified E03.9 History of ovarian cancer Z85.43 Osteopenia, unspecified location M85.80 Surgical History Surgery Date(Month/Year) hysterectomy 1998
--- OUTSIDE RECORDS SUMMARY | 2025-05-25 08:10 | XMS_ITS | Encounter Summary ---
Author Organization [facility] Address [address] [place] [address] Care Team Providers Care Medical Sales Consultant Name Role Phone Tiffany Batista MD Primary Care Provider [phone] Reason for Visit * Reason Onset Date Comments called pt to reschedule her 06/22/25 appt with Bethanie Barreto 05/23/2025 Encounter Details Date Type Department Care Team (Late st Contact Info) Description 05/23/2025 Telephone [facility] - [facility] [address] [facility] [address] [place] [address] Dayne Barreto MD [address] [place] [address] [place] [address] Social History Tobacco Use Types Packs/Day Years Used Date Smoking Tobacco: Former Cigarettes Smokeless Tobacco: Never Alcohol Use Standard Drinks/Week Comments Not Currently 0 (1 standard drink = 0.6 oz pur e alcohol) Comments Unknown Sex and Gender Information Value Date Recorded Sex Assigned at Not on file Legal Sex Female 5:27 PM EST Gender Identity Not on file Sexual Orientation Not on file documented as of this encounter Progress Notes * Li Lorenzana - 05/23/2025 8:58 AM EDT I called Shonda and left a voicemail for her her, We had to cancel her 06/22/[address] Barreto because he is in the EP Lab. She is aware that appointment was cancelled. I called her back and left a message with a new appointment date of Thursday2024 at 3:15 PM. Appointment reminder mailed. documented in this encounter Plan of Treatment Upcoming Encounters Date Type Department Care Team (Late st Contact Info) Description 05/30/2025 3:15 PM EDT Office Visit [facility] - [address] [place] [id number] Dayne Barreto MD [address] [place] [address] [place] [address] documented as of this encounter Visit Diagnoses Not on filedocumented in this encounter Care Teams Medical Sales Consultant Relationship Specialty Start Date End Date Tiffany Batista MD [address] [place] [address] PCP - General 07/16/22 documented as of this encounter
--- OUTSIDE RECORDS SUMMARY | 2025-05-25 08:10 | XMS_ITS | Patient Health Record ---
Author Organization [facility], Address [address] [address] Care Team Providers Care Sharepoint Net Developer Name Role Phone DR. CECILIO HERNANDEZ Primary Care Provider Unahira Guero Morocho Unavailable [phone] Allergies No Known Allergies Reason For Referral No Information Medications Medication SIG (Take, Route, Frequency, Duration) Notes Start Date End Date Status levothyroxine 88 mcg (0.088 mg) tablet 1 tab(s) orally once a day in morning Active hydroCHLOROthiazide 12.5 mg capsule 1 cap(s) orally once a day; Duration: 30 day(s) Active omeprazole 40 mg delayed release capsule 1 cap(s) orally once a day Active Magnesium 400 mg 1 tab po qd A ctive Vitamin B Complex 100 Active atorvastatin 80 mg tablet 1 tab(s) orall y once a day Active simvastatin 40 mg tablet 1 tab(s) orally once a day (at bedtime); Duration: 30 day(s) Active baclofen 10 mg tablet 1/2 tab(s) orally 3 times a day; Duration: 90 days 07/09/2018 Active Trazadone 50 mg tablet 1 tab(s) orally qPM As needed Active Topamax 50 mg tablet 1 tab(s) orally 2 times a day; Duration: 30 day(s) Active dilTIAZem 240 mg/24 hours capsule, extended release 1 cap(s) orally once a day; Duration: 30 day(s) Active Botox 200 unit vial 200 units solution administer 155 units into head and neck in divided doses intramuscular every 12 weeks; Duration: 90 days 06/08/2019 Active Vitamin B12 100 mcg tablet 1 tab(s) oral ly once a day Active flecainide 100 mg tablet 1 tab(s) orally 2x a day; Duration: 30 day(s) Active estradiol 0.1 mg/24 hours twice weekly film, extended release 1 PATCH applied topically 2 times a week Active Immunizations Vaccine Route Administration Date Status Comme nts Influenza Unknown 07/09/2018 Pending Social History Tobacco Use: Social History Observation Description Date Details (start date - stop date) Former Smoker NA - NA Social History General Social Info Question Answer Notes Tobacco Use: Do you smoke? former smoker Patient counseled on the dangers of tobacco use and advised to quit: 08/08/2020 Alcohol Use Social Info Question Answer Notes Alcohol Did you have a drink containing alcohol i n the past year? No Points 0 Interpretation Negative Additional Details Category Social Info Options Details General Occupation: disabled Alcohol: no no Caffeine: yes coffee, 1, cup(s ) per day, tea, 1, cup(s) per day Children: yes 2 Drug use: no no Marital Status: Lives with: Problems Problem Type SNOMED Code ICD Code Onset Dates Problem Status W/U Status Risk Notes Problem Chronic pain (89425423) Other chronic pain (G89.29) Active confirmed Problem Cervicalgia (95190281) Cervicalgia (M54.2) Active confirmed Problem Chronic migraine (020839425) Chronic migraine (G43.709) Active confirmed Problem Dystonia (39774924) Dystonia (G24.9) Active confirmed Plan Of Treatment No Information Insurance Providers Payer Name Payer Address Payer Phone Subscriber Number Group Number Insured Name Patient Relationship to Insured Coverage Start Date Coverage End Date [facility] [address] [facility] [phone] [id number] MECHELLEGERTRUDIS Hernandez Self - patient is the insured 4 Medications Administered Medication Instructions Date of Administration Dosage Notes Botox (Onabotulinumtoxina) 1 unit BB 09/30/2021 200 units Botox (Onabotulinumtoxina) 1 unit BB 01/01/2022 200 units Botox (Onabotulinumtoxina) 1 unit BB 04/14/2022 200 units Botox (Onabotulinumtoxina) 1 unit BB 07/07/2022 200 units OnabotulinumtoxinA 200 units SP 08/17/2019 200 units OnabotulinumtoxinA 200 units SP 12/19/2019 OnabotulinumtoxinA 200 units SP 03/07/2020 OnabotulinumtoxinA 200 units SP 06/13/2020 OnabotulinumtoxinA 200 units SP 09/10/2020 OnabotulinumtoxinA 200 units SP 12/03/2020 200 units OnabotulinumtoxinA 200 units SP 03/05/2021 200 units OnabotulinumtoxinA 200 units SP 06/19/2021 200 units Medical (General) History Medical History History ICD Code Hypercholesterolemia Hypothyroid after thyroidectomy Ovarian CA (S/p hysterectomy and chemoth erapy) Anxiety White Matter changes on brain MRI Cervicalgia Dystonia Fibromyalgia Chronic migraine Vertigo pcp following PVC ablation PANDEY lymphangioleiomyomatosis Surgical History Surgery Date(Month/Year) Hysterectomy 1998 Ovariectomy 1990 Thyroidectomy, total 2010 Cyst removed behind throat-benign 7 R breast biopsy-benign 08/2017 Biopsy on throat 02/2020 Ablation for heart- Dr. baron 01/28/21 Hospitalization History Reason Date(Month/Year)
--- OUTSIDE RECORDS SUMMARY | 2025-05-25 08:11 | XMS_ITS | Patient Health Record ---
Author Organization [facility] Address [address] [place] [address] Care Team Providers Care Lead Designer Name Role Phone HANG BLACKBURN M.D. Primary Care Provider UnavailSintia Duran Unavailable [phone] Allergies No Known Allergies Results Component Value Reference Range Notes PDF Report Reviewed date:01/29/2025 08:25:37 PM Interpretation: Performing Lab:[facility] [place], [address] [place] [address], Phone - [phone], Director - MDJodremmett Notes/Report: Clinical Information:SRC: Urine Culture, Routine-[id number] Reviewed date:01/29/2025 08:27:08 PM Interpretation: Performing Lab:[facility] [place], [address] [facility], Phone - [phone], Director - MDJodry Notes/Report: Clinical Information:SRC: Clinical Information:SRC: Urine Culture, Routine Final report Result 1 Escherichia coli Cefazolin with an PAOLO <=16 predicts susceptibility to the oral agents cefaclor, cefdinir, cefpodoxime, cefprozil, cefuroxime, cephalexin, and loracarbef when used for therapy of uncomplicated urinary tract infections due to E. coli, Klebsiella pneumoniae, and Proteus mirabilis. Greater than 100,000 colony forming units per mL Antimicrobial Susceptibility S = Susceptible; I = Intermediate; R = Resistant P = Positive; N = Negative MICS are expressed in micrograms per mL Antibiotic RSLT#1 RSLT#2 RSLT#3 RSLT#4 Amoxicillin/Clavulanic Acid S Ampicillin S Cefazolin S Cefepime S Cefoxitin S Cefpodoxime S Ceftriaxone S Ciprofloxacin S Ertapenem S Gentamicin S Levofloxacin S Meropenem S Nitrofurantoin S Piperacillin/Tazobactam S Tetracycline S Tobramycin S Trimethoprim/Sulfa S Urinalysis, Complete-[id number] Reviewed date:01/29/2025 08:27:22 PM Interpretation: Performing Lab:[facility], [address], [place], Phone - [phone], Director - Gabriella Notes/Report: Clinical Information:SRC: Clinical Information:SRC: Specific [place] 1.009 1.005-1.030 pH 6.5 5.0-7.5 Urine-Color Yellow Yellow Appearance Clear Clear WBC Esterase 3+ Negative Protein Trace Negative/Trace Glucose Negative Negative Ketones Negative Negative Occult Blood 1+ Negative Bilirubin Negative Negative Urobilinogen,Semi-Qn 0.2 0.2-1.0 mg/dL Nitrite, Urine Negative Negative Microscopic Examination See below: Micr oscopic was indicated and was performed. WBC >30 0 - 5 /hpf RBC 3-10 0 - 2 /hpf Epithelial Cells (non renal) 0-10 0 - 10 /hpf Casts None seen None seen /lpf Bacteria None seen None seen/Few Reason For Referral No Information Medications Medication SIG (Take, Route, Frequency, Duration) Notes Start Date End Date Status Atorvastatin Calcium 40 MG Oral; Duratio n: 90 Active Premarin 0.625 MG/GM 1 GRAM Vaginal TWICE WEEKLY; Duration: 90 days 01/14/2022 Active Omeprazole 40 MG 2 capsules Oral Once a day Active Estradiol 0.05 MG/24HR 1 patch to skin Transdermal EVERY 2 WEEKS; Duration: 90 days 01/19/2023 Active Naltrexone Active hydroCHLOROthiazide 12.5 MG TAKE 1 TABLET BY MOUTH EVERY MORNING Oral; Duration: 90 Active dilTIAZem HCl ER Beads 180 MG 1 capsule Orally Once a day; Duration: 30 day(s) Active Estradiol 0.075 MG/24HR 1 patch to skin Transdermal Once a week; Duration: 90 days Spoke with pharmacy this morning to verify patient using once weekly. Here is a new corrected rx. Ty 01/14/2022 Active Levothyroxine Sodium 88 MCG 1 tablet in the morning on an empty stomach Orally Once a day Active Premarin 0.625 MG/GM 1 GRAM Vaginal TWICE WEEKLY; Duration: 90 days 01/25/2024 Active Co Q 10 60 MG 1 capsule with a meal Orally Once a day; Duration: 30 day(s) Active Topiramate 50 MG Oral; Duration: 90 Active pyRIDostigmine [place] 60 MG TAKE 1 TABLET BY MOUTH THREE TIMES A DAY Oral; Duration: 90 Days Active Botox 200 UNIT Injection; Duration: 1 Active Estradiol 0.0375 MG/24HR 1 patch to skin Transdermal ONCE A WEEK; Duration: 90 days 01/25/2024 Active Amoxicillin-Pot Clavulanate 500-125 MG 1 tablet Orally every 12 hrs; Duration: 7 days 01/26/2025 Active Estradiol 0.0375 MG/24HR 1 patch to skin Transdermal ONCE A WEEK; Duration: 90 days 01/26/2025 Active Vitamin B12 1000 MCG 1 tablet Orally Once a day; Duration: 30 day(s) Active Citracal + D Active Magnesium 300 MG 1 capsule with a meal Orally Once a day; Duration: 30 day(s) Active Social History Tobacco Use: Social History Observation Description Date Details (start date - stop date) Former Smoker NA - NA AUDIT-C (Standard) Question Answer Notes Did you have a drink containing alcohol in the p ast year? No Points 0 Interpretation Negative Tobacco Control (Standard) Question Answer Notes Tobacco use: Former smoker Problems Problem Type SNOMED Code ICD Code Onset Dates Problem Status W/U Status Risk Notes Problem Postmenopausal atrophic vaginitis (82786083) Postmenopausal atrophic vaginitis (N95.2) Active confirmed Problem Urinary incontinence (034834215) Unspecified urinary incontinence (R32) Active confirmed Problem Atrophy of vulva (809995187) Atrophy of vulva (N90.5) Active confirmed Problem Functional urinary incontinence (264710480) Functional urinary incontinence (R39.81) Active confirmed Problem History of malignant neoplasm of ovary (232754952) Personal history of malignant neoplasm of ovary (Z85.43) Active confirmed Problem Malignant neoplasm of ovary (114002593) Malignant neoplasm of ovary (183.0) Active confirmed Diag Problem Hyperlipidemia (88756528) Other and unspecified hyperlipidemia (272.4) Active confirmed Major Problem Mastodynia (90917814) Mastodynia (611.71) Active confirmed Diag Problem Breast lump (42930732) Lump or mass in breast (611.72) Active confirmed Diag Problem Cervicovaginal cytology: Low grade squamous intraepithelial lesion (031055494) Papanicolaou smear of cervix with low grade squamous intraepithelial lesion (LGSIL) (795.03) Active confirmed Diag Problem Gynecological examination normal (851782398949831) Routine gynecological examination (V72.31) Active confirmed Problem Family history of malignant neoplasm of gastrointestinal tract (576693523) Family history of malignant neoplasm of gastrointestinal tract (V16.0) Active confirmed Diag Problem Family history of malignant neoplasm of breast (407686698) Family history of malignant neoplasm of breast (V16.3) Active confirmed Diag Problem Exercises teaching, guidance, and counseling (060301173) Exercise counseling (V65.41) Active confirmed Diag Problem Screening for malignant neoplasm of colon (204674770) Special screening for malignant neoplasms, colon (V76.51) Active confirmed Major Vital Signs Temperature 98.4 degrees Fahrenheit 01/26/2025 98.4 Blood pressure diastolic 72 mm Hg 01/26/2025 98. 4 Height 60.5 in 01/26/2025 98.4 Blood pressure systolic 126 mm Hg 01/26/2025 98.4 Weight 117 lbs 01/26/2025 98.4 BMI 22.47 kg/m2 01/26/2025 98.4 Encounters Encounter Location Date Provider Diagnosis Total [employer] [facility] [address] [address] 01/26/2025 Sintia Kee Encounter for gynecological examination (general) (routine) without abnormal findings Z01.419 ; Encounter for screening mammogram for malignant neoplasm of breast Z12.31 ; Urinary tract infection, site not specified N39.0 ; Urinary calculus, unspecified N20.9 and Hormone replacement therapy Z79.890 Total [employer] [facility] [address] [place] [address] 01/27/2025 Sintia Kee Assessments Encounter Date Diagnosis (ICD Code) Assessment Notes Treatment Notes Treatment Clinical Notes Section Notes 01/26/2025 Encounter for gynecological examination (general) (routine) without abnormal findings (ICD-10 - Z01.419) NO MORE PAP TESTS. 01/26/2025 Encounter for screening mammogram for malignant neoplasm of breast (ICD-10 - Z12.31) REGULAR MAMMOGRAMS AND SBE'S WERE RECOMMENDED. 01/26/2025 Urinary tract infection, site not specified (ICD-10 - N39.0) OFFICIAL UA AND URINE C/S WILL TREAT WITH AUGMENTIN FOR PRESUMED UTI. WILL CALL HER IF CULTURE SHOWS ORG IS RESISTENT TO AUGMENTIN. DETAILED INSTRUCTIONS AND RX WERE GIVEN. 01/26/2025 Urinary calculus, unspecified (ICD-10 - N20.9) DISCUSSED CINTHIA HEMATURIA AND RISK OF UROLOGIC STONES RETROPERITONEAL US WAS ORDERED. 01/26/2025 Hormone replacement therapy (ICD-10 - Z79.890) BENEFITS AND RISKS OF ERT WERE DISCUSSED. SHE HAS NO CONTRAINDICATIONS AND WANTS TO CONTINUE. SHE ACCEPTS RISKS. RX AND INSTRUCTIONS WERE GIVEN. Plan Of Treatment Pending Test Test Name Order Date Ultrasound : Breast, right 07/28/2017 Colonoscopy 12/21/2014 MAMMOGRAM, SCREENING 12/19/2020 MAMMOGRAM, SCREENING 12/21/2014 MAMMOGRAM, SCREENING 01/14/2022 MAMMOGRAM, SCREENING 01/19/2023 MAMMOGRAM, SCREENING 01/25/2024 MAMMOGRAM, SCREENING 01/26/2025 Urinalysis 01/25/2024 Ultrasound : Retroperitoneal 01/26/2025 CA 125 12/21/2014 BONE DENSITY 01/14/2022 BONE DENSITY 01/25/2024 MM Digital Mammo Screening 01/26/2025 MM Digital Mammo Screening 01/25/2024 MM Digital Mammo Screening 01/19/2023 MM Digital Mammo Screening 01/14/2022 MM Digital Mammo Screening 12/19/2020 Next Appt Details Provider Name:Sintia gill, 01/31/2026 09:00:00 AM, [address], [place], [address], Insurance Providers Payer Name Payer Address Payer Phone Subscriber Number Group Number Insured Name Patient Relationship to Insured Coverage Start Date Coverage End Date [facility] [address] [place] [address] [id number] GERTRUDIS HOPKINS Self - patient is the insured Medical (General) History Medical History History ICD Code Unspecified lump in breast N63 Malignant neoplasm of unspecified ovary C56.9 Family history of malignant neoplasm of breast Z80.3 Family history of malignant neoplasm of digestive organs Z80.0 Mastodynia N64.4 Low grade squamous intraepit helial lesion on cytologic smear of cervix (LGSIL) R87.612 Other hyperlipidemia E78.4 Functional urinary incontinence R39.81 Other abnormal and inconclusive findings on diagnostic imaging of breast R92.8 Postmenopausal atrophic vaginitis N95.2 Inconclusive mammogram R92.2 Unspecified lump in the right breast, lo wer outer quadrant N63.13 Hormone replacement therapy Z79.890 Atrophy of vulva N90.5 Mammographic heterogeneous density, bila teral breasts R92.333 Dense breasts, unspecified R92.30 Surgical History Surgery Date(Month/Year) Appendectomy Left Breast Biopsy (fibroadenoma) Colonoscopy SCARLET/BSO Thyroidectomy Hospitalization History Reason Date(Month/Year) See Surgical Hx 2 Vaginal Deliveries
== END 2025-05-25 08:52 | disposition home or self-care (01) ==
LOC: HO.HSM 08:03
PROVIDERS: Visit Provider Nurse Practitioner
DX: G43.709 Chronic migraine without aura, not intractable, without status migrainosus (principal); M25.512 Pain in left shoulder; M54.81 Occipital neuralgia
CPT/HCPCS: 20552; 64405; 99204

== ENCOUNTER → 2025-05-25 08:03 | Outpatient (BNVA) | payer MEDICARE, SELFPAY | PROVIDERS: Visit Provider Nurse Practitioner | DX: G43.709 Chronic migraine without aura, not intractable, without status migrainosus (principal); M25.512 Pain in left shoulder; M54.81 Occipital neuralgia; M79.18 Myalgia, other site | CPT/HCPCS: 20552; 64405; 99202; J0665; J2003 ==

== ENCOUNTER 2025-06-26 09:53 | Outpatient (AMB) | payer MEDICARE, SELFPAY ==
--- NOTE | 2025-06-26 09:55 | A.OFFVIS_ITS ---
Vital Signs 06/26/25 10:00 Height 5 ft 1 in Weight 115 lb BMI 21.7 BP 108/68 Blood Pressure Location Lt brachial Position Sitting Respiration 16 Pulse 54 Pulse Source Pulse Oximeter Pulse Oximetry (%) 98 Oxygen Delivery Method Room Air Intake Visit Reasons: Nerve block Allergies No Known Allergies Allergy (Verified 06/26/25 10:03) HPI Comments Details: Shonda is a 69-year-old female patient with a past medical history of vertigo, chronic migraine, fibromyalgia, cervicalgia, and dystonia who was previously seeing me at [facility] for management of her chronic migraines. She is here today for a occipital nerve bocks and trigger point injectios. She is also receiving Botox every 3 months. She last had her Botox therapy on 04/21/2025. Over the course of the last several months she has had worsening of headaches though she has also been undergoing numerous other medical complications and has been seeing specialists in [place] for possible interstitial lung disease. She is also undergoing testing for possibility of Sjogren's disease and the plan is likely to start CellCept for a cyst/lesion finding in her lung however she has not yet started this pending a few other points of workup. We did discuss at last visit that because her headaches are ramping up, we could consider a trial of another therapy in conjunction with her existing therapy however because she is in the midst of a workup and will be starting a new medication, we both have hesitancy regarding starting any new therapies at this time. Headaches are currently being reported as follows: occurring near daily and can last several hours at high severity. She has been resting and taking Tylenol as needed a few times per week when headaches become more severe. Headaches can be occipital and bitemporal and felt as a pressure sensation. She does have light and sound sensitivity and some intermittent nausea when her headaches become severe . In general, Botox has been helpful historically. Headaches have reduced approximately 50% in severity since starting on Botox in general. Past medication trials: Metoprolol- Currently taking for cardiovascular purposes but does not help with headaches Amitriptyline- No benefit Topiramate- No benefit Has tried several triptans in the past. She can recall trials of sumatriptan, rizatriptan, and naratriptan and these did not provide any benefit. Prior workup: Her recent workup has included an MRI of the brain with and without contrast performed 08/30/2024: Findings demonstrated no acute/subacute infarct, mass, hemorrhage, or other acute intracranial abnormality. There was some mild scattered T2 FLAIR hyperintense foci in the white matter, nonspecific but most likely reflecting chronic small-vessel disease. [facility] Medical History (Updated 05/25/25 @ 08:15 by Concha Lazcano CNP) Multinodular non-toxic goiter Migraine Surgical History (Updated 05/25/25 @ 08:11 by Najma Jimenez CMA) Hx of appendectomy H/O thyroidectomy H/O abdominal hysterectomy Family History (Updated 05/25/25 @ 08:13 by Najma Jimenez CMA) Mother Hypertension Father Leukemia Brother Colon cancer Social History (Updated 05/25/25 @ 08:12 by Najma Jimenez CMA) Household Members: Spouse Housing: House Alcohol intake: never Patient Tobacco Use Status: Former Tobacco user service: No Current occupational status: retired Cognitive needs: No Hearing needs: No Vision needs: Yes Review of Systems Const All systems reviewed & are unremarkable except as noted in HPI and below Physical Exam Vital Signs: Last Vital Signs Pulse 54 06/26/25 10:00 Resp 16 06/26/25 10:00 BP 108/68 06/26/25 10:00 Pulse Ox 98 06/26/25 10:00 Oxygen Delivery Method Room Air 06/26/25 10:00 BMI result Body Mass Index 21.7 Const General: cooperative, healthy appearing, comfortable and no acute distress Nutritional Appearance: well nourished Orientation/consciousness: patient oriented x3 Limitations: no limitations HEENT Other: Bilateral occipital notch tenderness Head: Yes normal to inspection and Yes normocephalic Eyes General: appearance normal, both eyes and all related structures Visual Alfaro: normal visual alfaro by confrontation Alignment and Position: alignment normal Periorbital: periorbital findings normal Eyelids: Yes eyelids normal Conjunctivae: conjunctivae normal Sclerae: sclerae normal Back/Spine/Pelvis Other: Bilateral L>R trapezius trigger points Neuro General: patient oriented x3 Cranial nerves: Yes CN's II-XII intact bilaterally and Yes Facial sensation intact/muscles of mastication intact Cognition (Neuro): normal cognition Gait exam (Neuro): Normal gait present Motor exam (neuro): no tremor noted Romberg Test: Negative Psych Appearance: grossly normal Mental Status: mental status grossly normal Speech and movement: Normal speech and movement present and Clear speech present Affect: normal affect Attitude: cooperative Thought process: Normal thought process present Thought content: Normal thought content present Insight: Good insight present (Psych) Judgement: Good judgement present (Psych) Office Procedures Nerve Block Details: Bilateral Greater Occipital Nerve block procedure: Laterally: Bilateral Indications: Occipital neuralgia Current allergies and current list of medications were reviewed prior to procedure, verbal consent was obtained, procedure was explained in detail to the patient prior to starting. Time-out was performed prior to procedure. Following universal hygiene protocols, patient's left occipital area was located by drawing a line between the external occipital protuberance and the mastoid process. The greater occipital nerve was located approximately 2/3 along this superintendent pipelines to the occiput, and corresponded with the point of maximum tender ness. Alcohol was applied topically to the skin. A 27 gauge needle (aspirating during insertion) was inserted at a 45 degree angle until just above the periosteum. The providers selected agent (s)/medications (as documented in this note) were injected on the left side (directing needle to center, left and right of painful focus any fanning technique). Pressure with gauze pad was held briefly upon the site of puncture to minimize bleeding and to further spread anesthetic subcutaneously. The procedure was repeated on the right side. The patient was monitored for 15 minutes after the procedure and no complications were observed. Post procedure care was reviewed with the patient including application of ice intermittently to the injection sites over the course of the day to reduce inflammation. CPT: 98076-Fqpcddi Occipital Procedure code (CPT) selection complete Therapeutic Injection Therapeutic Injection Details: Trigger point injection procedure: Laterally:Bilateral Indications: Chronic headaches, myofascial pain Following universal hygiene protocol, after explaining the risks and benefits as well as hazards of the procedure to the patient, consent was signed and placed in the chart. Time-out prior to starting the procedure was performed. The areas over the bilateral trapezius were cleansed with alcohol. 1 Sites in each trapezius muscle injected with a 27 gauge 1.5 in needle with myofascial spasm. Patient tolerated the procedure well, localized bleeding was controlled. Patient monitored in the clinic for 15 minutes for complications. Patient was discharged home with instructions to apply ice to the back of their head as needed. 06063-Veykibv Point Injection 1 or 2 sites All charges added?: Procedure code (CPT) selection complete Office Meds bupivacaine (PF) 0.25 % (2.5 mg/mL) injection solution Performing Provider: Concha Lazcano CNP [place] [facility] [place] [facility] Administered by: Concha Lazcano CNP on 06/26/25 10:00 Dose Route Admin Location Dispensed Lot Number Expiration Date [facility] Wrapper Sorter 4 mL Infiltration 10 mL [id number] [employer] Total Dispensed Waste 10 mL 60 % lidocaine (PF) 20 mg/mL (2 %) injection solution Performing Provider: Concha Lazcano CNP Performing [place] [facility] [place] [facility] Administered by: Concha Lazcano CNP on 06/26/25 10:00 Dose Route Admin Location Dispensed Lot Number Expiration Date [facility] Wrapper Sorter 40 mg subcut 40 mL [id number] Total Dispensed Waste 40 mL 0 % bupivacaine (PF) 0.25 % (2.5 mg/mL) injection solution Performing Provider: Concha Lazcano CNP [place]forming [place] [facility] [place] [facility] Administered by: Concha Lazcano CNP on 06/26/25 10:00 Dose Route Admin Location Dispensed Lot Number Expiration Date [facility] Wrapper Sorter 4 mL Infiltration 10 mL [id number] [employer] Total Dispensed Waste 10 mL 60 % Assessment & Plan Assessment & Plan (1) Trigger point of left shoulder region: Code(s): M25.512 - Pain in left shoulder Category: Medical Plan: . (2) Occipital neuralgia: Code(s): M54.81 - Occipital neuralgia Category: Medical Plan: . (3) Chronic migraine without aura without status migrainosus, not intractable: Code(s): G43.709 - Chronic migraine without aura, not intractable, without status migrainosus Category: Medical Plan: . Jd Merchant is a 69-year-old female patient with a past medical history of vertigo, chronic migraine, fibromyalgia, cervicalgia, and dystonia who is here today for occipital nerve block injections and trigger point injections. Procedure went well without any complications. We discussed again headaches ramping up but for now will keep on same regimen of Botox therapy and occipital nerve blocks/trigger point injections provided that these medications have less of a systemic impact. Once her workup is complete in [place] and she has started on the medication and is more stabilized in that regard, we could consider escalating therapy if needed. We have discussed anti CGRP therapies which may work well for her though again, at this time, we will hold off on any new medications. -continue occipital nerve blocks and trigger point injections every month (aside from months where she has Botox therapy) -continue Botox therapy every 3 months for migraine -follow up additionally as needed Orders: Orders AMB Trigger Point Injection Today G43.709 - Chronic migraine without aura, not intractable, without status migrainosus, M25.512 - Pain in left shoulder, M54.81 - Occipital neuralgia AMB Nerve Block Today G43.709 - Chronic migraine without aura, not intractable, without status migrainosus, M25.512 - Pain in left shoulder, M54.81 - Occipital neuralgia Coding Level of Care Code Est Pt Level 1 (43059) Diagnoses Trigger point of left shoulder region M25.512 Occipital neuralgia M54.81 Chronic migraine without aura without status migrainosus, not intractable G43.709 CPT Codes Nerve Block - CPT: 57577-Gnezzry Occipital ([id number]) Therapeutic Injection - Ther Injection 1: 97799-Mgqoihj Point Injection 1 or 2 sites ([id number])
[2025-06-26 10:00] VITALS: BP 108/68; PULSE 54; RESP 16; O2SAT 98; BMI 21.7
== END 2025-06-26 11:15 | disposition home or self-care (01) ==
LOC: HO.HSM 09:54
PROVIDERS: Visit Provider Nurse Practitioner
DX: M25.512 Pain in left shoulder (principal); M54.81 Occipital neuralgia; G43.709 Chronic migraine without aura, not intractable, without status migrainosus; M79.18 Myalgia, other site
CPT/HCPCS: 20552; 64405

== ENCOUNTER → 2025-06-26 09:53 | Outpatient (BNVA) | payer MEDICARE, SELFPAY | PROVIDERS: Visit Provider Nurse Practitioner | DX: M54.81 Occipital neuralgia (principal); M79.18 Myalgia, other site; M25.512 Pain in left shoulder; G43.709 Chronic migraine without aura, not intractable, without status migrainosus | CPT/HCPCS: 20552; 64405; 99211; J0665; J2003 ==

== ENCOUNTER 2025-08-14 10:53 | Outpatient (AMB) | payer MEDICARE, SELFPAY ==
--- NOTE | 2025-08-14 10:56 | A.OFFVIS_ITS ---
Vital Signs 08/14/25 11:00 Height 5 ft 1 in Weight 119 lb BMI 22.5 BP 138/90 H Blood Pressure Location Rt brachial Position Sitting Respiration 16 Pulse 58 Pulse Source Pulse Oximeter Pulse Oximetry (%) 98 Oxygen Delivery Method Room Air Intake Visit Reasons: 200u botox Wet Process Miller Required: No Allergies No Known Allergies Allergy (Verified 08/14/25 11:01) HPI Comments Details: Shonda is a 69-year-old female patient with a past medical history of vertigo, chronic migraine, fibromyalgia, cervicalgia, and dystonia who was previously seeing me at [facility] for management of her chronic migraines. She is here today for Botox therapy which before today was last given on 04/21/2025. She was late due to difficulties with insurance approval. Over the course of the last several months she has had worsening of headaches though she has also been undergoing numerous other medical complications and has been seeing specialists in [place] for possible interstitial lung disease. She is also undergoing testing for possibility of Sjogren's disease and the plan is likely to start CellCept for a cyst/lesion finding in her lung however she has not yet started this pending a few other points of workup. We did discuss at recent visits that because her headaches are ramping up, we could consider a trial of another therapy in conjunction with her existing therapy however because she is in the midst of a workup and will be starting a new medication, we both have hesitancy regarding starting any new therapies at this time. Headaches at time of last visit reported as follows: occurring near daily and can last several hours at high severity. She has been resting and taking Tylenol as needed a few times per week when headaches become more severe. Headaches can be occipital and bitemporal and felt as a pressure sensation. She does have light and sound sensitivity and some intermittent nausea when her headaches become severe . In general, Botox has been helpful historically. Headaches have reduced approximately 50% in severity since starting on Botox in general. Unfortunately today she reports that since our last visit headaches have ramped up significantly. We are almost 1 month labs done her Botox being due in her stress has been very significant with other health concerns. Headaches have been daily and severe and has been impacting her day-to-day tasks. She has a accompanying light and sound sensitivity and intermittent nausea. Headaches are most prominent to the occipital areas worse on the right than the left and can radiate to the bitemporal areas felt as a pressure and pounding sensation. Past medication trials: Metoprolol- Currently taking for cardiovascular purposes but does not help with headaches Amitriptyline- No benefit Topiramate- No benefit Has tried several triptans in the past. She can recall trials of sumatriptan, rizatriptan, and naratriptan and these did not provide any benefit. Prior workup: Her recent workup has included an MRI of the brain with and without contrast performed 08/30/2024: Findings demonstrated no acute/subacute infarct, mass, hemorrhage, or other acute intracranial abnormality. There was some mild scattered T2 FLAIR hyperintense foci in the white matter, nonspecific but most likely reflecting chronic small-vessel disease. [facility] Medical History (Updated 05/25/25 @ 08:15 by Concha Lazcano CNP) Multinodular non-toxic goiter Migraine Surgical History (Updated 05/25/25 @ 08:11 by Najma Jimenez CMA) Hx of appendectomy H/O thyroidectomy H/O abdominal hysterectomy Family History (Updated 05/25/25 @ 08:13 by Najma Jimenez CMA) Mother Hypertension Father Leukemia Brother Colon cancer Social History (Updated 05/25/25 @ 08:12 by Najma Jimenez CMA) Household Members: Spouse Housing: House Alcohol intake: never Patient Tobacco Use Status: Former Tobacco user service: No Current occupational status: retired Cognitive needs: No Hearing needs: No Vision needs: Yes Review of Systems Const All systems reviewed & are unremarkable except as noted in HPI and below Physical Exam Vital Signs: Last Vital Signs Pulse 58 08/14/25 11:00 Resp 16 08/14/25 11:00 BP 138/90 H 08/14/25 11:00 Pulse Ox 98 08/14/25 11:00 Oxygen Delivery Method Room Air 08/14/25 11:00 BMI result Body Mass Index 22.5 Const General: cooperative, healthy appearing, comfortable and no acute distress Nutritional Appearance: well nourished Orientation/consciousness: patient oriented x3 Limitations: no limitations HEENT Other: Bilateral occipital notch tenderness Head: Yes normal to inspection and Yes normocephalic Eyes General: appearance normal, both eyes and all related structures Visual Alfaro: normal visual alfaro by confrontation Alignment and Position: alignment normal Periorbital: periorbital findings normal Eyelids: Yes eyelids normal Conjunctivae: conjunctivae normal Sclerae: sclerae normal Back/Spine/Pelvis Other: Bilateral L>R trapezius trigger points Neuro General: patient oriented x3 Cranial nerves: Yes CN's II-XII intact bilaterally and Yes Facial sensation intact/muscles of mastication intact Cognition (Neuro): normal cognition Gait exam (Neuro): Normal gait present Motor exam (neuro): no tremor noted Romberg Test: Negative Psych Appearance: grossly normal Mental Status: mental status grossly normal Speech and movement: Normal speech and movement present and Clear speech present Affect: normal affect Attitude: cooperative Thought process: Normal thought process present Thought content: Normal thought content present Insight: Good insight present (Psych) Judgement: Good judgement present (Psych) Office Procedures Botulinum toxin Injection 88101 - Migraine Procedure code (CPT) selection complete Office Procedure [facility] Details: Non billable procedure: Procedure: Nerivio neuromodulation device Benefits and risks reviewed with the patient prior to initiation of this therapy (risks including risk for allergic reaction to adhesive,and slight site discomfort). Patient agreed to proceed with neuromodulation. Nerivio device applied to patient's left arm a proximally 10 minutes prior to starting her Botox treatment. The treatment was increased to a level of 35% prior to her treatment and remained in place during her procedure and for 10 minutes after her procedure. The Nerivio device was in place at 35% for approximately 40 minutes. There were no complications during this procedure and her pain was a 8/10 after her treatment. Pain pre-procedure was 10/10. Office Meds onabotulinumtoxinA 200 unit solution for injection Performing Provider: Concha Lazcano CNP Performing Location: [facility] [place] [facility] Administered by: Concha Lazcano CNP on 08/14/25 11:30 Dose Route Admin Location Dispensed Lot Number Expiration Date [facility] Study Specialist 155 unit IM 200 units [id number] 12/06/27 4364-1296-55 [employer]/BOTOX Total Dispensed Waste 200 units 22.5 % Assessment & Plan Assessment & Plan (1) Trigger point of left shoulder region: Code(s): M25.512 - Pain in left shoulder Category: Medical Plan: . (2) Occipital neuralgia: Code(s): M54.81 - Occipital neuralgia Category: Medical Plan: . (3) Chronic migraine without aura without status migrainosus, not intractable: Code(s): G43.709 - Chronic migraine without aura, not intractable, without status migrainosus Category: Medical Plan: . Jd Merchant is a 69-year-old female patient with a past medical history of vertigo, chronic migraine, fibromyalgia, cervicalgia, and dystonia who is here today for Botox therapy. Procedure went well without any complications. We discussed again headaches ramping up but for now will keep on same regimen of Botox therapy and occipital nerve blocks/trigger point injections provided that these medications have less of a systemic impact. Once her workup is complete in [place] and she has started on the medication and is more stabilized in that regard, we could consider escalating therapy if needed. We have discussed anti CGRP therapies which may work well for her though again, at this time, we will hold off on any new medications. -continue occipital nerve blocks and trigger point injections every month (aside from months where she has Botox therapy) -continue Botox therapy every 3 months for migraine -follow up additionally as needed Orders: Orders AMB Botulinum toxin Injection Today G43.709 - Chronic migraine without aura, not intractable, without status migrainosus Medications: New onabotulinumtoxinA (Botox) 155 units IM ONCE 1 ea 3RF 12 weeks Coding Level of Care Code Est Pt Level 2 (44229) Diagnoses Trigger point of left shoulder region M25.512 Occipital neuralgia M54.81 Chronic migraine without aura without status migrainosus, not intractable G4 3.709 CPT Codes Botox Injection - Botox 3: 40044 - Migraine ([id number])
[2025-08-14 11:00] VITALS: BP 138/90; PULSE 58; RESP 16; O2SAT 98; BMI 22.5
== END 2025-08-14 11:40 | disposition home or self-care (01) ==
LOC: HO.HSM 10:54
PROVIDERS: Visit Provider Nurse Practitioner
DX: M25.512 Pain in left shoulder (principal); M54.81 Occipital neuralgia; G43.709 Chronic migraine without aura, not intractable, without status migrainosus
CPT/HCPCS: 64615

== ENCOUNTER → 2025-08-14 10:53 | Outpatient (BNVA) | payer MEDICARE, SELFPAY | PROVIDERS: Visit Provider Nurse Practitioner | DX: G43.709 Chronic migraine without aura, not intractable, without status migrainosus (principal) | CPT/HCPCS: 64615; J0585 ==